=== PATIENT | male | born 1955 | race Caucasian/White ===

== ENCOUNTER 2017-06-10 15:14 | Emergency (ER) | payer OTHER ==
[2017-06-10 15:27] VITALS: BP 140/75
--- NOTE | 2017-06-10 16:31 | EDM.PDOC ---
ED HPI GENERAL MEDICAL PROBLEM - General Chief Complaint: Lower Extremity Injury/Pain Stated Complaint: right ankle injury Time Seen by Provider: 06/10/17 15:50 Source of Information: Reports: Patient History Limitations: Reports: No Limitations - History of Present Illness INITIAL COMMENTS - FREE TEXT/NARRATIVE: Elliot is a 61 yo male who presents to the ER with complaints of right ankle pain. States he was putting in a suspended ceiling this afternoon and went to step off the scaffolding. States he missed his step and fell directly onto his right foot about 5 ft off the ground. Denies any discomfort while sitting but if he tries to bear weight the pain will intensify to about a 10 out of 10. Has previous resection of his right big toe secondary to complications from past infections with history of diabetic neuropathy. Onset: Today Location: Reports: Lower Extremity, Right Severity: Moderate Improves with: Reports: Rest, Other (non weightbearing) Worsens with: Reports: Other (weight bearing), Movement Associated Symptoms: Reports: No Other Symptoms Right Ankle Pain Score (Numeric/FACES): 10 - Related Data Allergies Allergy/AdvReac Type Severity Reaction Status Date / Time cephalexin [Cephalexin] Allergy Mild Hives Verified 06/10/17 15:17 Home Meds: Home Meds Aspirin [Halfprin] 81 mg PO BEDTIME 04/09/15 [History] Cholecalciferol (Vitamin D3) [Vitamin D3] 5,000 unit PO BEDTIME 04/09/15 [ History] Gabapentin 600 mg PO BID 04/09/15 [History] Insulin Lispro [HumaLOG] 5 units SUBCUT 0800,1200,2000 04/09/15 [History] Levothyroxine Sodium 150 mcg PO DAILY 04/09/15 [History] Lisinopril 20 mg PO DAILY 04/09/15 [History] Sertraline HCl 100 mg PO DAILY 04/09/15 [History] Simvastatin [Zocor] 20 mg PO DAILY 04/09/15 [History] Insulin Glarg,Human.Rec.Analog [LantUS Solostar] 20 units SUBCUT DAILY 07/20/16 [History] Aspirin [Halfprin] 1 tab PO DAILY 06/10/17 [History] Dicyclomine [Bentyl] 20 mg PO BID 06/10/17 [History] cloNIDine HCl [Catapres] 0.1 mg PO BID 06/10/17 [History] Past Medical History HEENT History: Reports: Impaired Vision Cardiovascular History: Reports: High Cholesterol, Hypertension Gastrointestinal History: Reports: Irritable Bowel Syndrome Genitourinary History: Reports: Prostate Disorder Other Genitourinary History: 2006 prostate removed , dx of CA. Other Musculoskeletal History: SPINAL STENOSIS, BONE SPURS ON SPINAL COLUMN Neurological History: Reports: CVA Other Neuro History: CVA 2005 Psychiatric History: Reports: Depression Endocrine/Metabolic History: Reports: Diabetes, Type I, Hypothyroidism Oncologic (Cancer) History: Reports: Prostate Other Oncologic History: melanoma right great toe Other Dermatologic History: hx of yeast infections, takes lamicil. - Past Surgical History Other Musculoskeletal Surgeries/Procedures:: Laminectomy on 04/03/2015 Oncologic Surgical History: Reports: None Other Oncologic Surgeries/Procedures: Prostatectomy in 2006 Social & Family History - Tobacco Use Smoking Status *Q: Current Every Day Smoker Years of Tobacco use: 40 Packs/Tins Daily: 1 - Caffeine Use Caffeine Use: Reports: Coffee - Recreational Drug Use Recreational Drug Use: No Review of Systems - Review of Systems Review Of Systems: ROS reveals no pertinent complaints other than HPI. Musculoskeletal: Reports: Joint Pain (right ankle), Joint Swelling. Denies: Foot Pain Skin: Reports: No Symptoms Neurological: Reports: No Symptoms, Other ED EXAM, GENERAL - Physical Exam Exam: See Below General Appearance: Alert, No Apparent Distress, Other (sitting comfortably in wheelchair) Extremities: Normal Capillary Refill, Joint Swelling, Limited Range of Motion ( right ankle), Other (deformity noted to medial malleolus) Neurological: Normal Cognition, No Motor/Sensory Deficits, Other (chronic diminished sensation to distal toes) Psychiatric: Normal Affect, Normal Mood Skin Exam: Warm, Dry, Intact ED TRAUMA EXTREMITY PROCEDURES - Splinting Right Lower Extremity Splint Site: right lower extremity Pre-Procedure NV Status: Normal Post-Procedure NV Status: Normal Splint Material: Fiberglass Splint Design: Posterior Applied & Form Fitted By: Provider Provider Post-Splint Application NV Check: NV Status Normal Complications: No Course - Vital Signs Last Recorded V/S: Last Vital Signs Temp 97.5 F 06/10/17 15:24 Pulse 69 06/10/17 15:24 Resp 16 06/10/17 15:24 BP 140/75 06/10/17 15:24 Pulse Ox 92 L 06/10/17 15:24 - Orders/Labs/Meds Orders: Active Orders 24 hr Category Date Time Status Ankle Min 3V Rt [CR] Stat Exams 06/10/17 15:38 Taken Departure - Departure Time of Disposition: 16:32 Disposition: Home, Self-Care 01 Clinical Impression: Fracture of tibia - Discharge Information Instructions: Tibial Fracture, Adult, [id number] Forms: ED Department Discharge Additional Instructions: 1) Remain non-weightbearing, use crutches 2) Do not remove posterior splint 3) May ice thru the elvira wrap - 20 minutes at a time 4) Keep foot elevated tonight 5) May take 500mg of Tylenol with 400mg of ibuprofen every 6 hours as needed for pain. 6) Appoint[place] tomorrow at 10:00am [place] [facility] [place] List & Annotations (1) Fracture of tibia SNOMED Code(s): 77824554 Code(s): S82.209A - UNSP FRACTURE OF SHAFT OF UNSP TIBIA, INIT FOR CLOS FX Status: Acute Current Visit: Yes - Problem List Review Problem List Initiated/Reviewed/Updated: Yes - My Orders Last 24 Hours: My Active Orders 06/10/17 15:38 Ankle Min 3V Rt [CR] Stat - Assessment/Plan Last 24 Hours: My Active Orders 06/10/17 15:38 Ankle Min 3V Rt [CR] Stat Plan: See additional instructions.
== END 2017-06-10 16:55 | disposition home or self-care (01) ==
LOC: CC.ED 15:14
DX: S82.209A Unspecified fracture of shaft of unspecified tibia, initial encounter for closed fracture (principal); I10 Essential (primary) hypertension; E78.00 Pure hypercholesterolemia, unspecified; F17.210 Nicotine dependence, cigarettes, uncomplicated; Z88.1 Allergy status to other antibiotic agents; Z79.82 Long term (current) use of aspirin; E10.9 Type 1 diabetes mellitus without complications; Z79.899 Other long term (current) drug therapy; X58.XXXA Exposure to other specified factors, initial encounter
CPT/HCPCS: 29515; 73610-RT; 99283

== ENCOUNTER 2019-02-09 03:59 | Emergency (ER) | payer OTHER ==
[2019-02-09 04:24] VITALS: BP 170/73
--- NOTE | 2019-02-09 04:49 | EDM.PDOC ---
ED HPI GENERAL MEDICAL PROBLEM - General Chief Complaint: General Stated Complaint: "Having left leg pain, vomitting, and my blood sug Time Seen by Provider: 02/09/19 04:31 Source of Information: Reports: Patient, Family () History Limitations: Reports: No Limitations - History of Present Illness INITIAL COMMENTS - FREE TEXT/NARRATIVE: Elliot is a 63 yo male who presents to the ED via private vehicle, accompanied by his , with complaints of nausea and vomiting. He states it started yesterday morning and hasn't been able to keep anything down. Is a known Type 1 diabetic but states he hasn't checked his blood sugar since Thursday. Admits since he hasn't been able to eat anything, he hasn't checked his blood sugars since Thursday. He also states he has been having severe left lower extremity pain, starting from his hip and going down to his toes. States the pain started yesterday and is progressively getting worse. Denies any injury or trauma that could have caused the pain. States he has fallen a couple times last night because the pain is severe and worsens with ambulation. Onset Date: 02/08/19 Onset Time: 08:00 Duration: Getting Worse Location: Reports: Abdomen, Lower Extremity, Left - Related Data Allergies Allergy/AdvReac Type Severity Reaction Status Date / Time cephalexin [Cephalexin] Allergy Mild Hives Verified 08/18/18 08:00 Home Meds: Home Meds Cholecalciferol (Vitamin D3) [Vitamin D3] 5,000 unit PO BEDTIME 04/09/15 [ History] Gabapentin 600 mg PO BID 04/09/15 [History] Insulin Lispro [HumaLOG] 3 - 5 units SUBCUT 0800,1200,2000 04/09/15 [History] Levothyroxine Sodium 150 mcg PO DAILY 04/09/15 [History] Lisinopril 20 mg PO BID 04/09/15 [History] Sertraline HCl 100 mg PO DAILY 04/09/15 [History] Simvastatin [Zocor] 20 mg PO DAILY 04/09/15 [History] Insulin Glarg,Human.Rec.Analog [LantUS Solostar] 25 units SUBCUT QAM 07/20/16 [ History] Aspirin [Halfprin] 81 mg PO DAILY 06/10/17 [History] Dicyclomine [Bentyl] 20 mg PO BID 06/10/17 [History] cloNIDine HCl [Catapres] 0.1 mg PO BID 06/10/17 [History] Levothyroxine 175 mcg PO ACBRK 08/16/18 [History] Past Medical History HEENT History: Reports: Cataract, Impaired Vision, Sinusitis Cardiovascular History: Reports: High Cholesterol, Hypertension Respiratory History: Reports: None Gastrointestinal History: Reports: Irritable Bowel Syndrome Genitourinary History: Reports: Prostate Disorder, Other (See Below) Other Genitourinary History: 2006 prostate removed , dx of CA. ELEVATED PSA Musculoskeletal History: Reports: Arthritis Other Musculoskeletal History: SPINAL STENOSIS, BONE SPURS ON SPINAL COLUMN Neurological History: Reports: Concussion, CVA, Neuropathy, Diabetic, Other ( See Below) Other Neuro History: CVA 2005. SPINAL STENOSIS, LUMBAR Psychiatric History: Reports: Depression Endocrine/Metabolic History: Reports: Diabetes, Type I, Hypothyroidism, Vitamin D Deficiency Hematologic History: Reports: None Immunologic History: Reports: None Oncologic (Cancer) History: Reports: Prostate Other Oncologic History: melanoma right great toe Other Dermatologic History: hx of yeast infections, takes lamicil. - Infectious Disease History Infectious Disease History: Reports: Chicken Pox, Measles - Past Surgical History HEENT Surgical History: Reports: None Cardiovascular Surgical History: Reports: None Respiratory Surgical History: Reports: None GI Surgical History: Reports: Colonoscopy Male Surgical History: Reports: Prostatectomy Other Musculoskeletal Surgeries/Procedures:: Laminectomy on 04/03/2015 Oncologic Surgical History: Reports: None Other Oncologic Surgeries/Procedures: Prostatectomy in 2006 Social & Family History - Tobacco Use Smoking Status *Q: Current Every Day Smoker Years of Tobacco use: 40 Packs/Tins Daily: 1 Second Hand Smoke Exposure: No - Caffeine Use Caffeine Use: Reports: Coffee Caffeine Use Comment: 8 OZ - Living Situation & Occupation Living situation: Reports: , with Spouse Occupation: Retired ED ROS GENERAL - Review of Systems Review Of Systems: See Below Constitutional: Reports: Weakness, Fatigue, Decreased Appetite. Denies: Fever, Chills HEENT: Reports: No Symptoms Respiratory: Reports: No Symptoms Cardiovascular: Denies: Chest Pain, Palpitations Endocrine: Reports: Fatigue, High Glucose GI/Abdominal: Reports: Nausea, Vomiting. Denies: Abdominal Pain, Constipation, Diarrhea, Hematemesis : Reports: No Symptoms Musculoskeletal: Reports: Leg Pain (left), Foot Pain Skin: Reports: No Symptoms Neurological: Reports: No Symptoms Psychiatric: Reports: No Symptoms ED EXAM, GENERAL - Physical Exam Exam: See Below Exam Limited By: No Limitations General Appearance: Alert, Mild Distress Eye Exam: Bilateral Eye: Normal Inspection, PERRL Ears: Normal External Exam, Normal Canal, Hearing Grossly Normal, Normal TMs Nose: Normal Inspection, Normal Mucosa, No Blood Throat/Mouth: Normal Inspection, Normal Lips, Normal Teeth, Normal Gums, Normal Oropharynx, Normal Voice, No Airway Compromise Head: Atraumatic, Normocephalic Neck: Normal Inspection, Supple, Non-Tender Respiratory/Chest: No Respiratory Distress, Lungs Clear, Normal Breath Sounds Cardiovascular: No Edema, No Murmur, Irregularly Irregular. No: Normal Peripheral Pulses Peripheral Pulses: 0: Femoral (L), Posterior Tibial (L), Dorsalis Pedis (L), 2+ : Femoral (R), Posterior Tibial (R), Dorsalis Pedis (R) GI/Abdominal: Normal Bowel Sounds, Soft, Non-Tender, No Organomegaly, No Distention, No Mass Extremities: Leg Pain, Pallor. No: Pedal Edema, Limited Range of Motion Neurological: Alert, Oriented, Sensory/Motor Deficit (decreased sensation to left lower extremity) Psychiatric: Normal Affect, Normal Mood Skin Exam: Cool (left lower extremity, roughly midcalf extending to distal digits), Pallor EKG INTERPRETATION EKG Date: 02/09/19 Time: 05:45 Rhythm: A-Fib Rate (Beats/Min): 113 Comparison: NA - No Prior EKG Course - Vital Signs Last Recorded V/S: Last Vital Signs Temp 97.6 F 02/09/19 04:21 Pulse 100 02/09/19 04:21 Resp 20 02/09/19 04:21 BP 170/73 H 02/09/19 04:21 Pulse Ox - Orders/Labs/Meds Orders: Active Orders 24 hr Category Date Time Status C-REACTIVE PROTEIN [CHEM] Stat Lab 02/09/19 04:32 Received CBC WITH AUTO DIFF [HEME] Stat Lab 02/09/19 04:32 Received COMPREHENSIVE METABOLIC PN,CMP [CHEM] Stat Lab 02/09/19 04:32 Received LIPASE [CHEM] Stat Lab 02/09/19 04:32 Received MAGNESIUM [CHEM] Stat Lab 02/09/19 04:32 Received Departure - Departure Time of Disposition: 06:45 Disposition: DC/Tfer to [facility] 02 Clinical Impression: Nonpalpable left femoral pulse, Peripheral artery occlusion Diabetic ketoacidosis associated with type 1 diabetes mellitus Qualifiers: Diabetes mellitus complication detail: without coma Qualified Code(s): E10.10 - Type 1 diabetes mellitus with ketoacidosis without coma Atrial fibrillation Qualifiers: Atrial fibrillation type: unspecified Qualified Code(s): I48.91 - Unspecified atrial fibrillation - Discharge Information - Problem List & Annotations (1) Atrial fibrillation SNOMED Code(s): 52592088 Code(s): I48.91 - UNSPECIFIED ATRIAL FIBRILLATION Status: Acute Qualifiers: Atrial fibrillation type: unspecified Qualified Code(s): I48.91 - Unspecified atrial fibrillation (2) Diabetic ketoacidosis associated with type 1 diabetes mellitus SNOMED Code(s): 954667723, 449521189 Code(s): E10.10 - TYPE 1 DIABETES MELLITUS WITH KETOACIDOSIS WITHOUT COMA Status: Acute Qualifiers: Diabetes mellitus complication detail: without coma Qualified Code(s): E10.10 - Type 1 diabetes mellitus with ketoacidosis without coma (3) Nonpalpable left femoral pulse SNOMED Code(s): 491056195 Code(s): R09.89 - OTH SYMPTOMS AND SIGNS INVOLVING THE CIRC AND RESP SYSTEMS Status: Acute Priority: High (4) Peripheral artery occlusion SNOMED Code(s): 673529395 Code(s): I77.9 - DISORDER OF ARTERIES AND ARTERIOLES, UNSPECIFIED Status: Acute - My Orders Last 24 Hours: My Active Orders 02/09/19 04:32 C-REACTIVE PROTEIN [CHEM] Stat CBC WITH AUTO DIFF [HEME] Stat COMPREHENSIVE METABOLIC PN,CMP [CHEM] Stat LIPASE [CHEM] Stat MAGNESIUM [CHEM] Stat - Assessment/Plan Last 24 Hours: My Active Orders 02/09/19 04:32 C-REACTIVE PROTEIN [CHEM] Stat CBC WITH AUTO DIFF [HEME] Stat COMPREHENSIVE METABOLIC PN,CMP [CHEM] Stat LIPASE [CHEM] Stat MAGNESIUM [CHEM] Stat Plan: Initially, Clarence had a blood glucose of 955mg/dL and was given a bolus of Normal Saline with IV drip of regular insulin at 10 units per hour. He was also given 1 ampule of sodium bicarbonate intravenously secondary to hyperkalemia. 4 mg of Morphine Sulfate was given via IV secondary to moderate pain in left lower extremity. 4mg of Zofran was given IV as well. No emesis during time in ED. With pulseless cold left lower extremity, 5000 units of heparin was given. It appears Clarence has new onset of atrial fibrillation as well, which I feel may be secondary to diabetic ketoacidosis. Consultation with Dr. Rosas, ER physician, at [facility] in [place] in regards to Clarence's condition. Dr. Rosas accepted transfer. Attempt for ALS crew was not immediately available and elected to proceed with flight d/t concerns of delayed care. [facility] accepted transfer via fixed wing with an [place] of 6:[place]. I discussed the risk and benefits of transfer with Clarence and his . Risks of transfer included; worsening of condition/pain, aircraft crash, , loss of limb. Benefits of transfer included; appropriate surgical intervention, hospitalist, diagnostics, certified nursing assistant instructor and improvement of conditions. Risks of non-transfer included; worsening of conditions, loss of limb secondary to vascular compromise, no appropriate surgical or hospital intervention. Benefits of non-transfer included; staying in familiar environment and close to home. Clarence and his verbalized understanding and were in agreement with transfer. I discussed with Clarence and his , initially looked at ALS ground transfer; however secondary to no available semi truck driver's immediately I did not feel comfortable delaying definitive care. Both again verbalized understanding and were in agreement.
[2019-02-09 04:50] LABS: CHLORIDE,CL 90 mEq/L (98-106); SODIUM,NA 129 mEq/L (136-145)
[2019-02-09] MEDS: Sodium Chloride 0.9% 1,000 ML ONE (05:00)
[2019-02-09] MEDS: Sodium Chloride 0.9% 1,000 ML IV ONE (05:00)
[2019-02-09] MEDS: Sodium Chloride 0.9% 100 ML ONE (05:00)
[2019-02-09 05:10] LABS: O2 DELIVERY DEVICE ROOM AIR
[2019-02-09 05:15] LABS: BICARBONATE,ARTERIAL 12.2 mm/L (22.0-26.0); O2 SATURATION ARTERIAL 94 % (95-98); PCO2 ARTERIAL 29 mm/Hg0 (35-45); PO2 ARTERIAL 81 mm/Hg (80-100)
[2019-02-09] MEDS: Ondansetron 4 MG/2 ML SDV IVPUSH STA (05:25)
[2019-02-09] MEDS: Sodium Chloride 0.9% 250 ML ONE (06:14)
[2019-02-09] MEDS: Sodium Bicarbonate 8.4% 50 MEQ/50 ML Syringe IV ONE (06:15)
[2019-02-09] MEDS: Morphine 4 MG/ML Syringe IVPUSH ONE (06:26)
[2019-02-09] MEDS: Insulin Regular, Human 100 Units/ML 10 ML Vial IV STA (06:33)
[2019-02-09] MEDS: Heparin Sodium 10,000 Units/1 ML MDV IVPUSH ONE (06:46)
== END 2019-02-09 07:18 ==
LOC: CC.ED 03:59
DX: E10.10 Type 1 diabetes mellitus with ketoacidosis without coma (principal); I77.9 Disorder of arteries and arterioles, unspecified; I48.91 Unspecified atrial fibrillation; I10 Essential (primary) hypertension; F17.210 Nicotine dependence, cigarettes, uncomplicated; Z79.899 Other long term (current) drug therapy; Z79.82 Long term (current) use of aspirin; Z88.1 Allergy status to other antibiotic agents
CPT/HCPCS: 36415; 36600; 80053; 82803; 82947; 82962; 83605; 83690; 83735; 85025; 86140; 93005; 96361; 96365; 96375; 99285; J1644; J1815; J2270; J2405; J7030; J7050

== ENCOUNTER 2019-05-21 19:10 | Observation (INO) | payer OTHER, MEDICARE ==
--- NOTE | 2019-05-21 19:30 | EDM.PDOC ---
ED HPI GENERAL MEDICAL PROBLEM - General Chief Complaint: General Stated Complaint: syncope Time Seen by Provider: 05/21/19 19:10 Source of Information: Reports: Patient, EMS History Limitations: Reports: No Limitations - History of Present Illness INITIAL COMMENTS - FREE TEXT/NARRATIVE: This patient is a 63 year old male that presents to the ER. Patient is brought via EMS [place]. Patient reports that he was feeling fine today without issues. He reports then about 1830 he standing at someone else car at the road leaning over at the window talking. He reports that he got hot, felt lightheaded , diaphoretic, and passed out. EMS reports the witness at scene said he was passed out for 2 minutes. The patient reports that when he woke up, he now feels nauseated. Patient arrival to the ER is alert and oriented x4. Patient denies chest pain, shortness of breath, headache, lightheadedness. Patient reports nausea. 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 Onset: Today Onset Date: 05/21/19 Onset Time: 18:30 Severity: Moderate Improves with: Reports: None Worsens with: Reports: None Associated Symptoms: Reports: Nausea/Vomiting, Syncope. Denies: Confusion, Chest Pain, Cough, cough w sputum, Diaphoresis, Fever/Chills, Headaches, Loss of Appetite, Malaise, Rash, Seizure, Shortness of Breath, Weakness - Related Data Allergies Allergy/AdvReac Type Severity Reaction Status Date / Time cephalexin [Cephalexin] Allergy Mild Hives Verified 05/21/19 20:06 Penicillins Allergy Rash Verified 05/21/19 20:06 Home Meds: Home Meds Cholecalciferol (Vitamin D3) [Vitamin D3] 5,000 unit PO BEDTIME 04/09/15 [ History] Insulin Lispro [HumaLOG] 3 - 5 units SUBCUT 0800,1200,1730 04/09/15 [History] Lisinopril 20 mg PO DAILY 04/09/15 [History] Sertraline HCl 100 mg PO DAILY 04/09/15 [History] Simvastatin [Zocor] 20 mg PO BEDTIME 04/09/15 [History] Insulin Glarg,Human.Rec.Analog [LantUS Solostar] 25 units SUBCUT QAM 07/20/16 [ History] Aspirin [Halfprin] 81 mg PO DAILY 06/10/17 [History] Dicyclomine [Bentyl] 20 mg PO BID 06/10/17 [History] Furosemide [Lasix] 20 mg PO DAILY 05/21/19 [History] Levothyroxine Sodium [Synthroid] 175 mcg PO DAILY 05/21/19 [History] Metoprolol Tartrate [Lopressor] 25 mg PO Q12HR 05/21/19 [History] Omeprazole 20 mg PO ACBREAKFAST 05/21/19 [History] Warfarin [Coumadin] 10 mg PO DAILY 05/21/19 [History] Gabapentin [Neurontin] 200 mg PO TID 05/22/19 [History] amLODIPine [Norvasc] 10 mg PO DAILY 05/22/19 [History] Past Medical History HEENT History: Reports: Cataract, Impaired Vision, Sinusitis Cardiovascular History: Reports: High Cholesterol, Hypertension Respiratory History: Reports: None Gastrointestinal History: Reports: Irritable Bowel Syndrome Genitourinary History: Reports: Prostate Disorder, Other (See Below) Other Genitourinary History: 2006 prostate removed , dx of CA. ELEVATED PSA Musculoskeletal History: Reports: Arthritis Other Musculoskeletal History: SPINAL STENOSIS, BONE SPURS ON SPINAL COLUMN Neurological History: Reports: Concussion, CVA, Neuropathy, Diabetic, Other ( See Below) Other Neuro History: CVA 2005. SPINAL STENOSIS, LUMBAR Psychiatric History: Reports: Depression Endocrine/Metabolic History: Reports: Diabetes, Type I, Hypothyroidism, Vitamin D Deficiency Hematologic History: Reports: None Immunologic History: Reports: None Oncologic (Cancer) History: Reports: Prostate Other Oncologic History: melanoma right great toe Other Dermatologic History: hx of yeast infections, takes lamicil. - Infectious Disease History Infectious Disease History: Reports: Chicken Pox, Measles - Past Surgical History HEENT Surgical History: Reports: None Cardiovascular Surgical History: Reports: None Respiratory Surgical History: Reports: None GI Surgical History: Reports: Colonoscopy Male Surgical History: Reports: Prostatectomy Other Musculoskeletal Surgeries/Procedures:: Laminectomy on 04/03/2015 Oncologic Surgical History: Reports: None Other Oncologic Surgeries/Procedures: Prostatectomy in 2006 Social & Family History - Caffeine Use Caffeine Use: Reports: Coffee Caffeine Use Comment: 8 OZ - Living Situation & Occupation Living situation: Reports: , with Spouse Occupation: Retired ED ROS GENERAL - Review of Systems Review Of Systems: See Below Constitutional: Reports: Weakness (generalized), Diaphoresis HEENT: Reports: No Symptoms Respiratory: Reports: No Symptoms. Denies: Shortness of Breath Cardiovascular: Reports: Lightheadedness, Syncope. Denies: Chest Pain Endocrine: Reports: No Symptoms GI/Abdominal: Reports: Nausea. Denies: Abdominal Pain, Diarrhea, Vomiting : Reports: No Symptoms Musculoskeletal: Reports: No Symptoms Skin: Reports: Wound (right knee abrasion) Neurological: Reports: Dizziness, Syncope Psychiatric: Reports: No Symptoms Hematologic/Lymphatic: Reports: No Symptoms Immunologic: Reports: No Symptoms ED EXAM, GENERAL - Physical Exam Exam: See Below Exam Limited By: No Limitations General Appearance: Alert, WD/WN, No Apparent Distress Eye Exam: Bilateral Eye: EOMI, PERRL Ears: Normal External Exam, Normal Canal, Hearing Grossly Normal, Normal TMs Ear Exam: Bilateral Ear: Auricle Normal, Canal Normal, TM normal Nose: Normal Inspection, Normal Mucosa, No Blood Throat/Mouth: Normal Inspection, Normal Lips, Normal Teeth, Normal Gums, Normal Oropharynx, Normal Voice, No Airway Compromise Head: Atraumatic, Normocephalic Neck: Normal Inspection, Supple, Non-Tender, Full Range of Motion Respiratory/Chest: No Respiratory Distress, Lungs Clear, Normal Breath Sounds, No Accessory Muscle Use, Chest Non-Tender Cardiovascular: Normal Peripheral Pulses, No Edema, No Gallop, No JVD, No Murmur , No Rub, Bradycardia (54 on exam) Peripheral Pulses: 2+: Radial (L), Radial (R), Posterior Tibial (L), Posterior Tibial (R), Dorsalis Pedis (L), Dorsalis Pedis (R) GI/Abdominal: Normal Bowel Sounds, Soft, Non-Tender, No Organomegaly, No Distention, No Abnormal Bruit, No Mass, Pelvis Stable Back Exam: Normal Inspection, Full Range of Motion. No: CVA Tenderness (L), CVA Tenderness (R), Decreased Range of Motion, Muscle Spasm, Paraspinal Tenderness, Vertebral Tenderness Extremities: Normal Inspection, Normal Range of Motion, Non-Tender, No Pedal Edema, Normal Capillary Refill, Other (LLE wound with dressing in place, not new from today. ) Neurological: Alert, Oriented, CN II-XII Intact, Normal Cognition, No Motor/ Sensory Deficits Psychiatric: Normal Affect, Normal Mood Skin Exam: Warm, Dry, Normal Color, No Rash, Wound/Incision (small superficial abrasion right knee) Lymphatic: No Adenopathy EKG INTERPRETATION EKG Date: 05/21/19 Time: 19:22 Rate (Beats/Min): 50 ST-T: Normal Course - Vital Signs Last Recorded V/S: Last Vital Signs Temp 97.2 F 05/22/19 08:00 Pulse 64 05/22/19 08:00 Resp 16 05/22/19 08:00 BP 144/61 H 05/22/19 11:26 Pulse Ox 93 L 05/22/19 08:00 - Orders/Labs/Meds Orders: Active Orders 24 hr Category Date Time Status Chest 2V [CR] Stat Exams 05/21/19 19:12 Taken Head wo Cont [CT] Stat Exams 05/21/19 19:28 Taken Medication Orders Acetaminophen (Tylenol) 650 mg PO Q4H PRN PRN Reason: Pain (Mild 1-3)/fever Hydrocodone Bitart/Acetaminophen ([place] 325-5 Mg) 1 tab PO Q4H PRN PRN Reason: Pain (moderate 4-6) Amlodipine Besylate (Norvasc) 10 mg PO DAILY [facility] Last Admin: 05/22/19 11:26 Dose: 10 mg Aspirin (Halfprin) 81 mg PO DAILY [facility] Furosemide (Lasix) 20 mg PO DAILY [facility] Last Admin: 05/22/19 11:24 Dose: 20 mg Gabapentin (Neurontin) 200 mg PO TID [facility] Sodium Chloride (Normal Saline) 500 mls @ 500 mls/hr IV .BOLUS [facility] Last Admin: 05/21/19 22:15 Dose: 500 mls/hr Insulin Glargine (Lantus Solostar) 0 units SUBCUT QAM [facility] Last Admin: 05/22/19 07:58 Dose: 25 units Insulin Human Lispro (Humalog) 0 unit SUBCUT 0800,1200,1730 [facility] Last Admin: 05/22/19 12:05 Dose: 3 units Admin: 05/22/19 07:56 Dose: 3 units Lisinopril (Prinivil) 20 mg PO DAILY [facility] Last Admin: 05/22/19 11:25 Dose: 20 mg Vitamin D3 *Pt Own (Med*) 5,000 unit PO BEDTIME [facility] Ondansetron HCl (Zofran) 4 mg IV Q6H PRN PRN Reason: Nausea/Vomiting Pantoprazole Sodium (Protonix) 40 mg PO ACBREAKFAST [facility] Last Admin: 05/22/19 07:52 Dose: 40 mg Dicyclomine 20 Mg (Cap*Pt Own Med*) 20 each PO BID [facility] Last Admin: 05/22/19 11:26 Dose: 20 each Levothyroxine 175 (Mcg Tab *Pt Own Med*) 1 each PO DAILY [facility] Last Admin: 05/22/19 11:26 Dose: 1 each Sertraline HCl (Zoloft) 100 mg PO DAILY [facility] Last Admin: 05/22/19 11:25 Dose: 100 mg Simvastatin (Zocor) 20 mg PO BEDTIME [facility] Warfarin Sodium (Coumadin) 10 mg PO DAILY@1200 [facility] Last Admin: 05/22/19 12:06 Dose: 10 mg Labs: Laboratory Tests 05/21/19 05/21/19 05/21/19 Range/Units 19:35 19:35 19:35 WBC 4.5 L (5.0-10.0) 10^3/uL RBC 4.79 (4.50-6.00) 10^6/uL Hgb 14.2 (14.0-18.0) g/dL Hct 41.8 (40.0-54.0) % MCV 87.3 (82.0-94.0) fL MCH 29.6 (27.0-32.0) pg MCHC 34.0 (33.0-38.0) g/dL RDW Coeff of Melvin 13.6 (11.0-15.0) % Plt Count 151 (150-400) 10^3/uL Add Manual Diff Yes Neutrophils % (Manual) 35 (35-85) % Band Neutrophils % 2 (0-5) % Lymphocytes % (Manual) 52 (21-55) % Monocytes % (Manual) 5 (2-12) % Eosinophils % (Manual) 2 (0-5) % Basophils % (Manual) 4 H (0-3) % PT 18.7 H (9.7-12.3) SEC INR 1.88 H (0.92-1.18) APTT 30.0 (23.2-32.3) SEC Sodium 139 (136-145) mEq/L Potassium 4.1 (3.5-5.0) mEq/L Chloride 104 (98-106) mEq/L Carbon Dioxide 27 (21-32) mmol/L BUN 34 H (7-18) mg/dL Creatinine 1.8 H (0.7-1.3) mg/dL Est Cr Clr Drug Dosing 39.58 mL/min Estimated GFR (MDRD) 38 L (>=60) mL/min Glucose 125 H (75-99) mg/dL Calcium 8.6 (8.4-10.1) mg/dL Total Bilirubin 0.2 (0.0-1.0) mg/dL AST 27 (15-37) U/L ALT 32 (12-78) U/L Alkaline Phosphatase 88 (46-116) U/L Lactate Dehydrogenase 229 H (100-190) U/L Creatine Kinase 279 H (35-232) U/L Troponin I < 0.017 (0.00-0.06) ng/mL Total Protein 7.5 (6.4-8.2) g/dL Albumin 3.3 L (3.4-5.0) g/dL Meds: Medications Generic Name Dose Route Start Last Admin Trade Name Freq PRN Reason Stop Dose Admin Acetaminophen 650 mg 05/21/19 21:12 Tylenol PO Q4H PRN Pain (Mild 1-3)/fever Hydrocodone Bitart/Acetaminophen 1 tab 05/21/19 21:12 [place] 325-5 Mg PO Q4H PRN Pain (moderate 4-6) Amlodipine Besylate 10 mg 05/22/19 10:30 05/22/19 11:26 Norvasc PO 10 mg DAILY MATT Administration Aspirin 81 mg 05/22/19 10:00 Halfprin PO DAILY MATT Furosemide 20 mg 05/22/19 08:00 05/22/19 11:24 Lasix PO 20 mg DAILY MATT Administration Gabapentin 200 mg 05/22/19 14:00 Neurontin PO TID MATT Sodium Chloride 500 mls @ 500 mls/hr 05/21/19 22:00 05/21/19 22:15 Normal Saline IV 500 mls/hr .BOLUS MATT Administration Insulin Glargine 0 units 05/22/19 08:00 05/22/19 07:58 Lantus Solostar SUBCUT 25 units QAM MATT Administration Insulin Human Lispro 0 unit 05/22/19 08:00 05/22/19 12:05 Humalog SUBCUT 3 units 0800,1200,1730 MATT Administration Lisinopril 20 mg 05/22/19 08:00 05/22/19 11:25 Prinivil PO 20 mg DAILY MATT Administration Vitamin D3 *Pt Own 5,000 unit 05/22/19 20:00 Med* PO BEDTIME MATT Ondansetron HCl 4 mg 05/21/19 21:12 Zofran IV Q6H PRN Nausea/Vomiting Pantoprazole Sodium 40 mg 05/22/19 07:00 05/22/19 07:52 Protonix PO 40 mg ACBREAKFAST MATT Administration Dicyclomine 20 Mg 20 each 05/22/19 10:00 05/22/19 11:26 Cap*Pt Own Med* PO 20 each BID MATT Administration Levothyroxine 175 1 each 05/22/19 11:00 05/22/19 11:26 Mcg Tab *Pt Own Med* PO 1 each DAILY MATT Administration Sertraline HCl 100 mg 05/22/19 08:00 05/22/19 11:25 Zoloft PO 100 mg DAILY MATT Administration Simvastatin 20 mg 05/22/19 20:00 Zocor PO BEDTIME MATT Warfarin Sodium 10 mg 05/22/19 12:00 05/22/19 12:06 Coumadin PO 10 mg DAILY@1200 MATT Administration Discontinued Medications Generic Name Dose Route Start Last Admin Trade Name Freq PRN Reason Stop Dose Admin Aspirin 81 mg 05/22/19 08:00 05/22/19 12:31 Aspirin PO Not Given DAILY [facility] Dicyclomine HCl 20 mg 05/22/19 08:00 05/22/19 12:31 Bentyl PO Not Given BID [facility] Gabapentin 600 mg 05/22/19 08:00 05/22/19 12:32 Neurontin PO Not Given TID MATT Gabapentin 600 mg 05/22/19 09:48 Neurontin PO TID [facility] Sodium Chloride 250 mls @ 250 mls/hr 05/21/19 20:30 Normal Saline IV .BOLUS [facility] Levothyroxine Sodium 150 mcg 05/22/19 08:00 05/22/19 12:32 Levothyroxine PO Not Given DAILY MATT Simvastatin 20 mg 05/22/19 08:00 05/22/19 12:32 Zocor PO Not Given DAILY MATT - Radiology Interpretation Free Text/Narrative:: Head ct: normal unenhanced ct scan of the brain. no acute infarct, no intracranial hemorrhage. CXR: No acute findings CT Results Date: 05/21/19 CT Results Time: 20:23 - Re-Assessments/Exams Free Text/Narrative Re-Assessment/Exam: 05/21/19 20:27 This patient reports that he feels fine with no complaints. He denies christy, dizziness, n, v, d, f, cp, soa, lightheaded. Patient alert and oriented. The patient is on Metoprolol, he has not taken his nightly dose. Patient is bradycardia at rate 48. Will admit this patient observation, hold his Metoprolol. Will redraw troponin at 11pm and again in am. 05/21/19 21:00 Patient BS elevated due missing last dose of insulin. Departure - Departure Time of Disposition: 20:29 Disposition: Refer to Observation Condition: Fair Clinical Impression: General weakness, Bradycardia Syncope Qualifiers: Syncope type: unspecified Qualified Code(s): R55 - Syncope and collapse - Discharge Information *PRESCRIPTION DRUG MONITORING PROGRAM REVIEWED*: Not Applicable *COPY OF PRESCRIPTION DRUG MONITORING REPORT IN PATIENT LEN: Not Applicable - My Orders Last 24 Hours: My Active Orders 05/21/19 19:12 Chest 2V [CR] Stat 05/21/19 19:28 Head wo Cont [CT] Stat - Assessment/Plan Last 24 Hours: My Active Orders 05/21/19 19:12 Chest 2V [CR] Stat 05/21/19 19:28 Head wo Cont [CT] Stat Plan: PLEASE SEE RN NOTE FOR PFSH PLEASE USE ER H&P ADMIT H&P.
[2019-05-21 19:57] LABS: CHLORIDE,CL 104 mEq/L (98-106); SODIUM,NA 139 mEq/L (136-145)
[2019-05-21] MEDS ORDERED: Sodium Chloride 0.9% 250 ML IV SCH (20:30)
[2019-05-21] MEDS ORDERED: Acetaminophen/HYDROcodone 325-5 MG Tab PO PRN (21:12)
[2019-05-21] MEDS ORDERED: Acetaminophen 325 MG Tab PO PRN (21:12)
[2019-05-21] MEDS ORDERED: Ondansetron 4 MG/2 ML SDV IV PRN (21:12)
[2019-05-21] MEDS ORDERED: Sodium Chloride 0.9% 500 ML IV SCH (22:00)
[2019-05-22 07:30] LABS: CHLORIDE,CL 104 mEq/L (98-106); SODIUM,NA 137 mEq/L (136-145)
[2019-05-22] MEDS: Pantoprazole 40 MG Tab.CR PO SCH (07:52)
[2019-05-22] MEDS: Insulin Lispro 100 Units/ML 3 ML Vial SUBCUT SCH ×3 (07:56→17:27)
[2019-05-22] MEDS: Insulin Glargine,Human Rec. Analog 100 Units/ML 3 ML Pen SUBCUT SCH (07:58)
[2019-05-22] MEDS ORDERED: Gabapentin 300 MG Cap PO SCH (08:00)
[2019-05-22] MEDS ORDERED: Levothyroxine 150 MCG Tab PO SCH (08:00)
[2019-05-22] MEDS ORDERED: Aspirin 81 MG Tab.Chew PO SCH (08:00)
[2019-05-22] MEDS ORDERED: Dicyclomine 10 MG Cap PO SCH (08:00)
[2019-05-22] MEDS ORDERED: Simvastatin 20 MG Tab PO SCH (08:00)
[2019-05-22] MEDS ORDERED: GABAPENTIN 100 MG PO SCH (09:48)
--- NOTE | 2019-05-22 09:55 | PCM.PN ---
- General Info Date of Service: 05/22/19 Functional Status: Reports: Pain Controlled, Tolerating Diet, Ambulating - Review of Systems General: Reports: No Symptoms HEENT: Reports: No Symptoms Pulmonary: Reports: No Symptoms Cardiovascular: Reports: No Symptoms Gastrointestinal: Reports: No Symptoms Genitourinary: Reports: No Symptoms Musculoskeletal: Reports: No Symptoms Skin: Reports: No Symptoms Neurological: Reports: No Symptoms Psychiatric: Reports: No Symptoms - Patient Data Vitals - Most Recent: Last Vital Signs Temp 98.2 F 05/22/19 04:00 Pulse 74 05/22/19 04:00 Resp 18 05/22/19 04:00 BP 141/87 H 05/22/19 04:00 Pulse Ox 97 05/22/19 04:00 Weight - Most Recent: 190 lb Lab Results Last 24 Hours: Laboratory Results - last 24 hr 05/21/19 05/21/19 05/21/19 Range/Units 19:35 19:35 19:35 WBC 4.5 L (5.0-10.0) 10^3/uL RBC 4.79 (4.50-6.00) 10^6/uL Hgb 14.2 (14.0-18.0) g/dL Hct 41.8 (40.0-54.0) % MCV 87.3 (82.0-94.0) fL MCH 29.6 (27.0-32.0) pg MCHC 34.0 (33.0-38.0) g/dL RDW Coeff of Melvin 13.6 (11.0-15.0) % Plt Count 151 (150-400) 10^3/uL Neut % (Auto) (35-85) % Lymph % (Auto) (10-55) % [place] % (Auto) (0-16) % Eos % (Auto) (0-5) % Baso % (Auto) (0-3) % Neut # (Auto) (1.80-7.00) 10^3/uL Lymph # (Auto) (1.00-4.80) 10^3/uL [place] # (Auto) (0.00-0.80) 10^3/uL Eos # (Auto) (0.00-0.45) 10^3/uL Baso # (Auto) 10^3/uL Add Manual Diff Yes Neutrophils % (Manual) 35 (35-85) % Band Neutrophils % 2 (0-5) % Lymphocytes % (Manual) 52 (21-55) % Monocytes % (Manual) 5 (2-12) % Eosinophils % (Manual) 2 (0-5) % Basophils % (Manual) 4 H (0-3) % PT 18.7 H (9.7-12.3) SEC INR 1.88 H (0.92-1.18) APTT 30.0 (23.2-32.3) SEC Sodium 139 (136-145) mEq/L Potassium 4.1 (3.5-5.0) mEq/L Chloride 104 (98-106) mEq/L Carbon Dioxide 27 (21-32) mmol/L BUN 34 H (7-18) mg/dL Creatinine 1.8 H (0.7-1.3) mg/dL Est Cr Clr Drug Dosing 39.58 mL/min Estimated GFR (MDRD) 38 L (>=60) mL/min Glucose 125 H (75-99) mg/dL Calcium 8.6 (8.4-10.1) mg/dL Total Bilirubin 0.2 (0.0-1.0) mg/dL AST 27 (15-37) U/L ALT 32 (12-78) U/L Alkaline Phosphatase 88 (46-116) U/L Lactate Dehydrogenase 229 H (100-190) U/L Creatine Kinase 279 H (35-232) U/L Troponin I < 0.017 (0.00-0.06) ng/mL Total Protein 7.5 (6.4-8.2) g/dL Albumin 3.3 L (3.4-5.0) g/dL Urine Color (YELLOW) Urine Appearance (CLEAR) Urine pH (4.5-8.0) Ur Specific [place] (1.003-1.020) Urine Protein (NEGATIVE) mg/dL Urine Glucose (UA) (NEGATIVE) mg/dL Urine Ketones (NEGATIVE) mg/dL Urine Occult Blood (NEGATIVE) Urine Nitrite (NEGATIVE) Urine Bilirubin (NEGATIVE) Urine Urobilinogen (0.2-1.0) EU/dL Ur Leukocyte Esterase (NEGATIVE) Urine RBC (0-5) /HPF Urine WBC (0-5) /HPF Urine Mucus (NOT SEEN) /HPF 05/21/19 05/22/1919 Range/Units 22:50 05:00 06:50 WBC 4.4 L (5.0-10.0) 10^3/uL RBC 4.53 (4.50-6.00) 10^6/uL Hgb 13.5 L (14.0-18.0) g/dL Hct 39.8 L (40.0-54.0) % MCV 87.9 (82.0-94.0) fL MCH 29.8 (27.0-32.0) pg MCHC 33.9 (33.0-38.0) g/dL RDW Coeff of Melvin 13.5 (11.0-15.0) % Plt Count 132 L (150-400) 10^3/uL Neut % (Auto) 62.3 (35-85) % Lymph % (Auto) 23.1 (10-55) % [place] % (Auto) 10.6 (0-16) % Eos % (Auto) 1.1 (0-5) % Baso % (Auto) 2.9 (0-3) % Neut # (Auto) 2.75 (1.80-7.00) 10^3/uL Lymph # (Auto) 1.02 (1.00-4.80) 10^3/uL [place] # (Auto) 0.47 (0.00-0.80) 10^3/uL Eos # (Auto) 0.05 (0.00-0.45) 10^3/uL Baso # (Auto) 0.13 10^3/uL Add Manual Diff Neutrophils % (Manual) (35-85) % Band Neutrophils % (0-5) % Lymphocytes % (Manual) (21-55) % Monocytes % (Manual) (2-12) % Eosinophils % (Manual) (0-5) % Basophils % (Manual) (0-3) % PT (9.7-12.3) SEC INR (0.92-1.18) APTT (23.2-32.3) SEC Sodium (136-145) mEq/L Potassium (3.5-5.0) mEq/L Chloride (98-106) mEq/L Carbon Dioxide (21-32) mmol/L BUN (7-18) mg/dL Creatinine (0.7-1.3) mg/dL Est Cr Clr Drug Dosing mL/min Estimated GFR (MDRD) (>=60) mL/min Glucose (75-99) mg/dL Calcium (8.4-10.1) mg/dL Total Bilirubin (0.0-1.0) mg/dL AST (15-37) U/L ALT (12-78) U/L Alkaline Phosphatase (46-116) U/L Lactate Dehydrogenase (100-190) U/L Creatine Kinase (35-232) U/L Troponin I < 0.017 (0.00-0.06) ng/mL Total Protein (6.4-8.2) g/dL Albumin (3.4-5.0) g/dL Urine Color Light yellow (YELLOW) Urine Appearance Clear (CLEAR) Urine pH 5.5 (4.5-8.0) Ur Specific [place] 1.015 (1.003-1.020) Urine Protein 100 H (NEGATIVE) mg/dL Urine Glucose (UA) 500 H (NEGATIVE) mg/dL Urine Ketones Negative (NEGATIVE) mg/dL Urine Occult Blood Trace-intact H (NEGATIVE) Urine Nitrite Negative (NEGATIVE) Urine Bilirubin Negative (NEGATIVE) Urine Urobilinogen 0.2 (0.2-1.0) EU/dL Ur Leukocyte Esterase Negative (NEGATIVE) Urine RBC 0-5 (0-5) /HPF Urine WBC 0-5 (0-5) /HPF Urine Mucus Occasional H (NOT SEEN) /HPF 05/22/19 Range/Units 06:50 WBC (5.0-10.0) 10^3/uL RBC (4.50-6.00) 10^6/uL Hgb (14.0-18.0) g/dL Hct (40.0-54.0) % MCV (82.0-94.0) fL MCH (27.0-32.0) pg MCHC (33.0-38.0) g/dL RDW Coeff of Melvin (11.0-15.0) % Plt Count (150-400) 10^3/uL Neut % (Auto) (35-85) % Lymph % (Auto) (10-55) % [place] % (Auto) (0-16) % Eos % (Auto) (0-5) % Baso % (Auto) (0-3) % Neut # (Auto) (1.80-7.00) 10^3/uL Lymph # (Auto) (1.00-4.80) 10^3/uL [place] # (Auto) (0.00-0.80) 10^3/uL Eos # (Auto) (0.00-0.45) 10^3/uL Baso # (Auto) 10^3/uL Add Manual Diff Neutrophils % (Manual) (35-85) % Band Neutrophils % (0-5) % Lymphocytes % (Manual) (21-55) % Monocytes % (Manual) (2-12) % Eosinophils % (Manual) (0-5) % Basophils % (Manual) (0-3) % PT (9.7-12.3) SEC INR (0.92-1.18) APTT (23.2-32.3) SEC Sodium 137 (136-145) mEq/L Potassium 4.8 (3.5-5.0) mEq/L Chloride 104 (98-106) mEq/L Carbon Dioxide 29 (21-32) mmol/L BUN 36 H (7-18) mg/dL Creatinine 1.9 H (0.7-1.3) mg/dL Est Cr Clr Drug Dosing 37.50 mL/min Estimated GFR (MDRD) 36 L (>=60) mL/min Glucose 352 H* D (75-99) mg/dL Calcium 8.3 L (8.4-10.1) mg/dL Total Bilirubin (0.0-1.0) mg/dL AST (15-37) U/L ALT (12-78) U/L Alkaline Phosphatase (46-116) U/L Lactate Dehydrogenase (100-190) U/L Creatine Kinase (35-232) U/L Troponin I < 0.017 (0.00-0.06) ng/mL Total Protein (6.4-8.2) g/dL Albumin (3.4-5.0) g/dL Urine Color (YELLOW) Urine Appearance (CLEAR) Urine pH (4.5-8.0) Ur Specific [place] (1.003-1.020) Urine Protein (NEGATIVE) mg/dL Urine Glucose (UA) (NEGATIVE) mg/dL Urine Ketones (NEGATIVE) mg/dL Urine Occult Blood (NEGATIVE) Urine Nitrite (NEGATIVE) Urine Bilirubin (NEGATIVE) Urine Urobilinogen (0.2-1.0) EU/dL Ur Leukocyte Esterase (NEGATIVE) Urine RBC (0-5) /HPF Urine WBC (0-5) /HPF Urine Mucus (NOT SEEN) /HPF Med Orders - Current: Current Medications Acetaminophen (Tylenol) 650 mg PO Q4H PRN PRN Reason: Pain (Mild 1-3)/fever Hydrocodone Bitart/Acetaminophen ([place] 325-5 Mg) 1 tab PO Q4H PRN PRN Reason: Pain (moderate 4-6) Aspirin (Aspirin) 81 mg PO DAILY [facility] Furosemide (Lasix) 20 mg PO DAILY [facility] Gabapentin (Neurontin) 600 mg PO TID [facility] Sodium Chloride (Normal Saline) 500 mls @ 500 mls/hr IV .BOLUS [facility] Last Admin: 05/21/19 22:15 Dose: 500 mls/hr Insulin Glargine (Lantus Solostar) 0 units SUBCUT QAM [facility] Last Admin: 05/22/19 07:58 Dose: 25 units Insulin Human Lispro (Humalog) 0 unit SUBCUT 0800,1200,1730 [facility] Last Admin: 05/22/19 07:56 Dose: 3 units Levothyroxine Sodium (Levothyroxine) 150 mcg PO DAILY [facility] Lisinopril (Prinivil) 20 mg PO DAILY [facility] Non-Formulary Medication (Cholecalciferol (Vitamin D3) [Vitamin D3]) 5,000 unit PO BEDTIME [facility] Ondansetron HCl (Zofran) 4 mg IV Q6H PRN PRN Reason: Nausea/Vomiting Pantoprazole Sodium (Protonix) 40 mg PO ACBREAKFAST [facility] Last Admin: 05/22/19 07:52 Dose: 40 mg Dicyclomine 20 Mg (Cap*Pt Own Med*) 20 each PO BID [facility] Sertraline HCl (Zoloft) 100 mg PO DAILY [facility] Simvastatin (Zocor) 20 mg PO DAILY [facility] Warfarin Sodium (Coumadin) 10 mg PO DAILY@1200 [facility] Discontinued Medications Dicyclomine HCl (Bentyl) 20 mg PO BID [facility] Sodium Chloride (Normal Saline) 250 mls @ 250 mls/hr IV .BOLUS [facility] - Exam General: Alert, Oriented, Cooperative, No Acute Distress Neck: Supple, Trachea Midline, No JVD, No Thyromegaly Lungs: Clear to Auscultation, Normal Respiratory Effort Cardiovascular: Regular Rhythm, Bradycardia (56 on exam) GI/Abdominal Exam: Normal Bowel Sounds, Soft, Non-Tender, No Organomegaly, No Distention, No Abnormal Bruit, No Mass, Pelvis Stable (Male) Exam: Deferred Back Exam: Normal Inspection, Full Range of Motion Extremities: Normal Inspection, Normal Range of Motion, Non-Tender, No Pedal Edema, Normal Capillary Refill Peripheral Pulses: 2+: Radial (L), Radial (R), Posterior Tibial (L), Posterior Tibial (R), Dorsalis Pedis (L), Dorsalis Pedis (R) Skin: Warm, Dry, Intact Wound/Incisions: Healing Well (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) Neurological: No New Focal Deficit Psy/Mental Status: Alert, Normal Affect, Normal Mood - Problem List Review Problem List Initiated/Reviewed/Updated: Yes - My Orders Last 24 Hours: My Active Orders 05/21/19 19:12 Chest 2V [CR] Stat 05/21/19 19:28 Head wo Cont [CT] Stat 05/21/19 20:57 Resuscitation Status Routine 05/21/19 21:12 Patient Status [ADT] Routine Cardiac Monitoring [RC] 0800,1999 Notify Provider Vital Signs [RC] .PRN Oxygen Therapy [RC] .PRN Up With Assistance [RC] .PRN Vital Signs [RC] 0000,0400,0800,1200,1600,2000 Acetaminophen [Tylenol] 650 mg PO Q4H PRN Acetaminophen/HYDROcodone [[place] 325-5 MG] 1 tab PO Q4H PRN Ondansetron [Zofran] 4 mg IV Q6H PRN Anticoagulation Contraindications VTE [AST] Per Unit Routine Antiembolic Hose [OM.PC] Per Unit Routine 05/21/19 22:00 Sodium Chloride 0.9% [Normal Saline] 500 ml IV .BOLUS 05/22/19 07:00 Pantoprazole [ProTONIX] 40 mg PO ACBREAKFAST 05/22/19 08:00 Aspirin 81 mg PO DAILY Furosemide [Lasix] 20 mg PO DAILY Gabapentin [Neurontin] 600 mg PO TID Insulin Glarg,Human.Rec.Analog [LantUS Solostar] 0 units SUBCUT QAM Insulin Lispro [HumaLOG] 0 unit SUBCUT 0800,1200,1730 Levothyroxine 150 mcg PO DAILY Lisinopril [Prinivil] 20 mg PO DAILY Sertraline [Zoloft] 100 mg PO DAILY Simvastatin [Zocor] 20 mg PO DAILY 05/22/19 10:00 Patient's Own Medication [Ptom] 20 each PO BID 05/22/19 12:00 Warfarin [Coumadin] 10 mg PO DAILY@1200 05/22/19 20:00 Cholecalciferol (Vitamin D3) [Vitamin D3] 5,000 unit PO BEDTIME 05/23/19 05:00 BASIC METABOLIC PANEL,BMP [CHEM] DAILY CBC WITH AUTO DIFF [HEME] DAILY - Plan Plan:: 05/22/19 0810am This patient was admitted late last night with bradycardia, syncope. The patient is taking Metoprolol. I admitted the patient and am holding his Metoprol due to bradycardia, syncope, and lightheadedness. The patient was given IV fluid bolus of 500ml. The patient this morning said he is feeling much better. He reports that he has not been lightheaded, dizzy and is feeling normal. Patient denies christy, dizziness, n, v, d, f, vision changes, cp, soa, weakness. The patient has been able to ambulate to the bathroom without difficulty of complaint. Patient labs are unremarkable, except his CR yesterday was 1.8, today 1.9. The patient has history of chronic CR elevation, so this is not far from his baseline. At times he has been greater than 2.0. I discussed with the patient getting up and ambulating throughout the hospital today. His HR is been just below 60 today on average, 54-60. Will continue hold Metoprolol this morning. Discussed with the patient possibility of going home this evening if his HR stays above 60 and he is asymptomatic. After further discussion with the patient, and his admit has been less than 24 hours, will keep observation admit until tomorrow. The patient will see his PCP to see if any further out patient workups are needed and if medications changes may be warranted. Will continue observation admit, see PCP tomorrow. 05/22/19 1245pm Patient HR is 70. Patient denies shortness of breath, cp, lightheaded. I will restart patient Lopressor, but will do 12.5mg BID to start at 8pm. PCP to see tomorrow to see if further adjustment is needed.
[2019-05-22] MEDS ORDERED: Aspirin 81 MG Tab.Chew*PT OWN MED PO SCH (10:00)
[2019-05-22] MEDS: Furosemide 20 MG Tab*PT OWN MED PO SCH (11:24)
[2019-05-22] MEDS: LISINOPRIL 20 MG PO SCH (11:25)
[2019-05-22] MEDS: LEVOTHYROXINE 175 MCG PO SCH (11:26)
[2019-05-22] MEDS: DICYCLOMINE 20 MG PO SCH ×2 (11:26→19:36)
[2019-05-22] MEDS: amLODIPine 10 MG Tab*PT OWN MED PO SCH (11:26)
[2019-05-22] MEDS: WARFARIN 5 MG PO SCH (12:06)
[2019-05-22] MEDS: GABAPENTIN 100 MG PO SCH ×2 (15:13→19:35)
--- NOTE | 2019-05-22 17:19 | PCM.SN ---
- Free Text/Narrative Note: 05/22/19 1700 ABEL Grewal reported to me she was ambulating the patient without difficulty, She reports [place] got [place] the way [place] and patient had oxygen saturation of 84%. She reports that he denied shortness of breath with this. She reports a second time she walked him and his oxygen saturation stayed above 90% RA, but he became lightheaded briefly. His HR currently is 56 at rest in room. Patient denies any symptoms currently. Patient does report that he did check his HR yesterday morning and it was 40, but he thought the machine was wrong because he was asymptomatic yesterday morning. At this time, I have not ordered a d- dimer. I have not angio his chest. Patient has a CR of 1.9, will not tolerate the dye. Also, patient current oxygen saturation is 95% RA, no dyspnea. Also, the patient is currently being anticoagulated. I have ordered an echo for this patient to hopefully be done tomorrow morning.
[2019-05-22] MEDS: Metoprolol Tartrate 25 MG Tab PO SCH (19:35)
[2019-05-22] MEDS ORDERED: Simvastatin 20 MG Tab*PT OWN MED PO SCH (20:00)
[2019-05-22] MEDS ORDERED: VITAMIN D3 PO SCH (20:00)
[2019-05-23] MEDS: Pantoprazole 40 MG Tab.CR PO SCH (06:28)
[2019-05-23] MEDS: LISINOPRIL 20 MG PO SCH (07:57)
[2019-05-23] MEDS: amLODIPine 10 MG Tab*PT OWN MED PO SCH (07:58)
[2019-05-23] MEDS: Furosemide 20 MG Tab*PT OWN MED PO SCH (07:58)
[2019-05-23] MEDS: Metoprolol Tartrate 25 MG Tab PO SCH (07:59)
[2019-05-23] MEDS: GABAPENTIN 100 MG PO SCH (08:02)
[2019-05-23] MEDS: Insulin Glargine,Human Rec. Analog 100 Units/ML 3 ML Pen SUBCUT SCH (08:07)
[2019-05-23] MEDS: Insulin Lispro 100 Units/ML 3 ML Vial SUBCUT SCH ×2 (08:09→12:30)
[2019-05-23] MEDS: DICYCLOMINE 20 MG PO SCH (08:10)
[2019-05-23] MEDS: LEVOTHYROXINE 175 MCG PO SCH (08:11)
[2019-05-23] MEDS: WARFARIN 5 MG PO SCH (12:30)
[2019-05-23 12:57] VITALS: BP 133/64; PULSE 46
--- NOTE | 2019-05-23 21:10 | PCM.DCSUM1 ---
Discharge Summary - Hospital Course Free Text/Narrative:: Patient presented to ER per EMS after a syncopal episode. Was bending down and leaning through a window talking to someone. States does recall feeling lightheaded, diaphoretic and ultimately had a syncopal episode. Bystander states was unresponsive for about 2 minutes. Upon awakening, patient felt nauseated. EMS was called. On arrival to ER, patient oriented x3. No chest pain, shortness of breath. Labs essentially negative. Creatinine 1.8. Heart rate 40s to 50s. Admitted, IV fluids started. Metoprolol held. Diagnosis: Stroke: No Modified Roya Scale: No Symptoms at All Modified Roya Scale Score: 0 - Discharge Data Discharge Date: 05/23/19 Discharge Disposition: Home, Self-Care 01 Condition: Good - Patient Summary/Data Complications: none Hospital Course: Patient doing well today. Has had issues with bradycardia yet at times. Did restart his Metoprolol yesterday as heart rate had improved but this am, down to 44 again after given am dose. Was up and ambulating in halls with staff, did have an episode of lightheadedness that last approximately 10 seconds yesterday. Today, denies any symptoms like that. He was also noted to drop his sat at one point but has not had any recurring concerns since. During that episode, patient denied any shortness of breath or chest pain. EKG does show sinus bradycardia, no areas of ischemia. Labs have improved, creatinine near to baseline now at 1.5. Troponin negative. Blood sugars running high first day , improved now. Will discharge home. Hold Metoprolol. Have patient keep log of blood pressures and bring to clinic with follow up appointment. - Patient Instructions Diet: Diabetic Diet Activity: As Tolerated - Discharge Plan *PRESCRIPTION DRUG MONITORING PROGRAM REVIEWED*: Not Applicable *COPY OF PRESCRIPTION DRUG MONITORING REPORT IN PATIENT LEN: Not Applicable Prescriptions/Med Rec: Metoprolol Tartrate [Lopressor] 12.5 mg PO Q12H #30 tablet Home Medications: Home Meds Cholecalciferol (Vitamin D3) [Vitamin D3] 5,000 unit PO BEDTIME 04/09/15 [ History] Insulin Lispro [HumaLOG] 3 - 5 units SUBCUT 0800,1200,1730 04/09/15 [History] Lisinopril 20 mg PO DAILY 04/09/15 [History] Sertraline HCl 100 mg PO DAILY 04/09/15 [History] Simvastatin [Zocor] 20 mg PO BEDTIME 04/09/15 [History] Insulin Glarg,Human.Rec.Analog [LantUS Solostar] 25 units SUBCUT QAM 07/20/16 [ History] Aspirin [Halfprin] 81 mg PO DAILY 06/10/17 [History] Dicyclomine [Bentyl] 20 mg PO BID 06/10/17 [History] Furosemide [Lasix] 20 mg PO DAILY 05/21/19 [History] Levothyroxine Sodium [Synthroid] 175 mcg PO DAILY 05/21/19 [History] Omeprazole 20 mg PO ACBREAKFAST 05/21/19 [History] Warfarin [Coumadin] 10 mg PO DAILY 05/21/19 [History] Gabapentin [Neurontin] 200 mg PO TID 05/22/19 [History] amLODIPine [Norvasc] 10 mg PO DAILY 05/22/19 [History] Metoprolol Tartrate [Lopressor] 12.5 mg PO Q12H #30 tablet 05/23/19 [Rx] Patient's Own Medication [Ptom] 1 each PO DAILY each 05/23/19 [Rx] Forms: ED Department Discharge Referrals: Tang Johnson MD [Primary Care Provider] - (Follow up with Dr. Johnson in one week, bring blood pressure log with to visit) - Discharge Summary/Plan Comment DC Time >30 min.: No - General Info Date of Service: 05/23/19 Admission Dx/Problem (Free Text: syncope Functional Status: Reports: Pain Controlled, Tolerating Diet, Ambulating - Review of Systems General: Reports: Weakness HEENT: Reports: No Symptoms Pulmonary: Denies: Shortness of Breath, Cough Cardiovascular: Denies: Chest Pain, Edema, Lightheadedness Gastrointestinal: Denies: Abdominal Pain, Nausea, Vomiting Genitourinary: Reports: No Symptoms Musculoskeletal: Reports: Leg Pain Neurological: Reports: Weakness Psychiatric: Reports: No Symptoms - Patient Data Vitals - Most Recent: Last Vital Signs Temp 97.2 F 05/23/19 12:00 Pulse 46 L 05/23/19 12:00 Resp 16 05/23/19 12:00 BP 133/64 05/23/19 12:00 Pulse Ox 95 05/23/19 12:00 Weight - Most Recent: 190 lb Lab Results - Last 24 hrs: Laboratory Results - last 24 hr 05/23/19 05/23/19 05/23/19 Range/Units 06:50 06:50 11:58 WBC 3.8 L (5.0-10.0) 10^3/uL RBC 4.35 L (4.50-6.00) 10^6/uL Hgb 12.8 L (14.0-18.0) g/dL Hct 38.0 L (40.0-54.0) % MCV 87.4 (82.0-94.0) fL MCH 29.4 (27.0-32.0) pg MCHC 33.7 (33.0-38.0) g/dL RDW Coeff of Melvin 13.4 (11.0-15.0) % Plt Count 129 L (150-400) 10^3/uL Neut % (Auto) 47.1 (35-85) % Lymph % (Auto) 34.9 (10-55) % [place] % (Auto) 13.1 (0-16) % Eos % (Auto) 1.8 (0-5) % Baso % (Auto) 3.1 H (0-3) % Neut # (Auto) 1.79 L (1.80-7.00) 10^3/uL Lymph # (Auto) 1.33 (1.00-4.80) 10^3/uL [place] # (Auto) 0.50 (0.00-0.80) 10^3/uL Eos # (Auto) 0.07 (0.00-0.45) 10^3/uL Baso # (Auto) 0.12 10^3/uL Sodium 139 (136-145) mEq/L Potassium 4.1 (3.5-5.0) mEq/L Chloride 105 (98-106) mEq/L Carbon Dioxide 28 (21-32) mmol/L BUN 34 H (7-18) mg/dL Creatinine 1.5 H (0.7-1.3) mg/dL Est Cr Clr Drug Dosing 47.50 mL/min Estimated GFR (MDRD) 47 L (>=60) mL/min Glucose 90 D (75-99) mg/dL POC Glucose 176 H (75-105) mg/dl Calcium 8.4 (8.4-10.1) mg/dL Med Orders - Current: Current Medications Discontinued Medications Acetaminophen (Tylenol) 650 mg PO Q4H PRN PRN Reason: Pain (Mild 1-3)/fever Hydrocodone Bitart/Acetaminophen ([place] 325-5 Mg) 1 tab PO Q4H PRN PRN Reason: Pain (moderate 4-6) Amlodipine Besylate (Norvasc) 10 mg PO DAILY [facility] Last Admin: 05/23/19 07:58 Dose: 10 mg Aspirin (Aspirin) 81 mg PO DAILY [facility] Last Admin: 05/22/19 12:31 Dose: Not Given Aspirin (Halfprin) 81 mg PO DAILY [facility] Last Admin: 05/23/19 07:57 Dose: 81 mg Dicyclomine HCl (Bentyl) 20 mg PO BID [facility] Last Admin: 05/22/19 12:31 Dose: Not Given Furosemide (Lasix) 20 mg PO DAILY [facility] Last Admin: 05/23/19 07:58 Dose: 20 mg Gabapentin (Neurontin) 600 mg PO TID [facility] Last Admin: 05/22/19 12:32 Dose: Not Given Gabapentin (Neurontin) 600 mg PO TID [facility] Gabapentin (Neurontin) 200 mg PO TID [facility] Last Admin: 05/23/19 08:02 Dose: 200 mg Sodium Chloride (Normal Saline) 250 mls @ 250 mls/hr IV .BOLUS [facility] Sodium Chloride (Normal Saline) 500 mls @ 500 mls/hr IV .BOLUS [facility] Last Admin: 05/21/19 22:15 Dose: 500 mls/hr Insulin Glargine (Lantus Solostar) 0 units SUBCUT QAM [facility] Last Admin: 05/23/19 08:07 Dose: 25 units Insulin Human Lispro (Humalog) 0 unit SUBCUT 0800,1200,1730 [facility] Last Admin: 05/23/19 12:30 Dose: 3 units Levothyroxine Sodium (Levothyroxine) 150 mcg PO DAILY [facility] Last Admin: 05/22/19 12:32 Dose: Not Given Lisinopril (Prinivil) 20 mg PO DAILY [facility] Last Admin: 05/23/19 07:57 Dose: 20 mg Metoprolol Tartrate (Lopressor) 12.5 mg PO Q12H [facility] Last Admin: 05/23/19 07:59 Dose: 12.5 mg Vitamin D3 *Pt Own (Med*) 5,000 unit PO BEDTIME [facility] Last Admin: 05/22/19 19:35 Dose: 5,000 unit Ondansetron HCl (Zofran) 4 mg IV Q6H PRN PRN Reason: Nausea/Vomiting Pantoprazole Sodium (Protonix) 40 mg PO ACBREAKFAST [facility] Last Admin: 05/23/19 06:28 Dose: 40 mg Dicyclomine 20 Mg (Cap*Pt Own Med*) 20 each PO BID [facility] Last Admin: 05/23/19 08:10 Dose: 20 each Levothyroxine 175 (Mcg Tab *Pt Own Med*) 1 each PO DAILY [facility] Last Admin: 05/23/19 08:11 Dose: 1 each Sertraline HCl (Zoloft) 100 mg PO DAILY [facility] Last Admin: 05/23/19 07:57 Dose: 100 mg Simvastatin (Zocor) 20 mg PO DAILY [facility] Last Admin: 05/22/19 12:32 Dose: Not Given Simvastatin (Zocor) 20 mg PO BEDTIME [facility] Last Admin: 05/22/19 19:36 Dose: 20 mg Warfarin Sodium (Coumadin) 10 mg PO DAILY@1200 [facility] Last Admin: 05/23/19 12:30 Dose: 10 mg - Exam General: Reports: Alert, Oriented HEENT: Reports: Mucous Membr. Moist/[place] Neck: Reports: Supple Lungs: Reports: Clear to Auscultation, Normal Respiratory Effort Cardiovascular: Reports: Regular Rhythm, Bradycardia GI/Abdominal Exam: Normal Bowel Sounds, Soft, Non-Tender Extremities: Normal Inspection, No Pedal Edema Skin: Reports: Warm, Dry Neurological: Reports: No New Focal Deficit *Q Meaningful Use (DIS) - VTE *Q VTE Anticoagulation Contraindications: Alternative [place] Request PT
== END 2019-05-23 13:10 | disposition home or self-care (01) ==
LOC: CC.ED 19:10 → CC.MS 20:53 → UNDOADMOB 20:53 → CC.MS 20:57
PROVIDERS: ADMIT Nurse Practitioner; ATTEND Family Medicine
DX: R55 Syncope and collapse (principal); R53.1 Weakness; R00.1 Bradycardia, unspecified; I10 Essential (primary) hypertension; K58.9 Irritable bowel syndrome, unspecified; M19.90 Unspecified osteoarthritis, unspecified site; E10.9 Type 1 diabetes mellitus without complications; E03.9 Hypothyroidism, unspecified; E55.9 Vitamin D deficiency, unspecified; E78.00 Pure hypercholesterolemia, unspecified; Z79.899 Other long term (current) drug therapy; Z79.4 Long term (current) use of insulin; Z79.82 Long term (current) use of aspirin; Z79.01 Long term (current) use of anticoagulants; Z88.1 Allergy status to other antibiotic agents; Z88.0 Allergy status to penicillin
CPT/HCPCS: 36415; 70450; 71046; 80048; 80053; 81001; 82550; 82962; 83615; 84484; 85025; 85610; 85730; 93005; 93306; 96360; 99285; A9270; G0378; J1815; J7040; 93010; 99217; 99220; 99225

== ENCOUNTER → 2019-12-09 | Day surgery (SDC) | payer OTHER, MEDICARE ==
[~2019-12-09] MED LIST: Lactated Ringers 1,000 ML IV SCH; Propofol 200 MG/20 ML SDV IV ONE
[2019-12-09 09:34] VITALS: BP 143/63; PULSE 51
--- NOTE | 2019-12-10 11:40 | OR ---
DATE OF OPERATION: 12/09/2019 PREOPERATIVE DIAGNOSIS: 1. HEMATOCHEZIA. 2. FAMILY HISTORY OF COLON CARCINOMA. POSTOPERATIVE DIAGNOSIS: 1. HEMATOCHEZIA. 2. FAMILY HISTORY OF COLON CARCINOMA. SURGEON: Tang Johnson MD PROCEDURE: DIAGNOSTIC COLONOSCOPY WITH FORCEPS POLYP REMOVAL X6, SNARE POLYP REMOVAL X1, BIOPSY X2. ANESTHESIA: MAC. COMPLICATIONS: None. SPECIMEN: 1. Colon polyps x7. 2. Rectal vault biopsy x2. FINDINGS: 1. Full-length colonoscopy. 2. Colon polyps numbering 7; 6 small sessile polyps of less than 0.5 cm and 1 larger tubular adenoma, distal sigmoid colon. 3. Proctitis, rectal vault, with friability and ulceration. RECOMMENDATIONS: Routine followup colonoscopy in 3 years pending path reports given the number of polyps and the size of one in the distal sigmoid, we will put the patient on Anusol HC suppositories until we get the pathology report on his rectal biopsies. INDICATIONS: Patient presented to [facility] with hematochezia. He has a family history of colon cancer. His last colonoscopy was about 4 years ago. He was sent for diagnostic endoscopy. DESCRIPTION OF PROCEDURE: The patient was prepped and draped, placed in the left lateral decubitus position. A lubricated Olympus colonoscope was inserted and easily advanced to the cecum. We were able to directly visualize the ileocecal valve and appendiceal orifice. The bowel prep was excellent. Upon withdrawal of the scope, the cecum appeared benign. In the [id number] ascending colon, the patient had a small flat inflammatory sessile polyp removed in its entirety with a forceps. In the [id number] transverse colon, the patient had a second sessile polyp also about 4 mm, removed with forceps. The descending colon and most of the sigmoid area appeared benign. In the mid-to- distal sigmoid at around 60 cm, the patient had a larger tubular adenoma of approximately a centimeter in size, we were able to easily snare this and suction into polyp trap #1. A smaller flat sessile polyp was within a centimeter of this, we removed with forceps. The rectosigmoid area had 3 small sessile polyps, again all removed with forceps without any complication. The rectal vault had no polyps or masses, but did have inflammatory change consistent with proctitis and some ulceration, very friable tissue. We did do 2 biopsies of this. It was difficult to retroflex in this gentleman who has a very shallow rectal vault, but upon direct withdrawal, no other masses were seen. Air was suctioned, scope removed without complication. JEYSON/SHERRELL /[id number]
== END ==
LOC: CC.SDS 07:36
PROVIDERS: ATTEND Family Medicine
DX: K92.1 Melena (principal); D12.7 Benign neoplasm of rectosigmoid junction; D12.2 Benign neoplasm of ascending colon; D12.4 Benign neoplasm of descending colon; D12.3 Benign neoplasm of transverse colon; K62.89 Other specified diseases of anus and rectum; E11.9 Type 2 diabetes mellitus without complications; N18.9 Chronic kidney disease, unspecified; I82.409 Acute embolism and thrombosis of unspecified deep veins of unspecified lower extremity; F17.210 Nicotine dependence, cigarettes, uncomplicated; E66.9 Obesity, unspecified; Z80.0 Family history of malignant neoplasm of digestive organs; Z88.1 Allergy status to other antibiotic agents; Z79.82 Long term (current) use of aspirin; Z79.4 Long term (current) use of insulin; Z79.01 Long term (current) use of anticoagulants; Z79.899 Other long term (current) drug therapy; Z68.30 Body mass index [BMI] 30.0-30.9, adult
CPT/HCPCS: 36415; 45385; 85610; J2704; J7120

== ENCOUNTER 2021-06-03 17:50 | Emergency (ER) | payer OTHER, MEDICARE ==
--- NOTE | 2021-06-03 18:05 | EDM.PDOC ---
ED HPI GENERAL MEDICAL PROBLEM - General Chief Complaint: Gastrointestinal Problem Stated Complaint: vomiting Time Seen by Provider: 06/03/21 18:00 Source of Information: Reports: Patient History Limitations: Reports: No Limitations - History of Present Illness INITIAL COMMENTS - FREE TEXT/NARRATIVE: Elliot is a 65 yo male who presents to the ED with c/o 3 episodes of vomiting t hroughout the day today. He reports he first vomited around 11 am this morning. Was working in the warm conditions and was able to continue to work. He reports he did feel somewhat weak and did fall down. He does have lacerations noted to his forehead and nose. Is on Coumadin, so trauma code was initiated. Denies any dizziness, chest pain, or shortness of breath prior to fall. Denies any LOC. 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 Does feel the heat bothered him some today. Does report he chronically has a poor appetite. Is an uncontrolled type I diabetic. Did not check his blood sugar today. No other symptoms. Onset: Today Onset Date: 06/03/21 Onset Time: 11:00 Duration: Intermittent Location: Reports: Head Quality: Reports: Ache Severity: Mild Associated Symptoms: Reports: Headaches, Loss of Appetite (chronic), Nausea/Vomiting, Weakness. Denies: Confusion, Chest Pain, Cough, cough w sputum, Diaphoresis, Fever/Chills, Malaise, Rash, Seizure, Shortness of Breath, Syncope Headache Pain Score (Numeric/FACES): 2 - Related Data Allergies Allergy/AdvReac Type Severity Reaction Status Date / Time cephalexin [Cephalexin] Allergy Mild Hives Verified 06/03/21 18:03 Penicillins Allergy Rash Verified 06/03/21 18:03 Home Meds: Home Meds Cholecalciferol (Vitamin D3) [Vitamin D3] 5,000 unit PO BEDTIME 04/09/15 [History] Lisinopril 10 mg PO DAILY 04/09/15 [History] Sertraline HCl 100 mg PO DAILY 04/09/15 [History] Simvastatin [Zocor] 20 mg PO BEDTIME 04/09/15 [History] Aspirin [Halfprin] 81 mg PO DAILY 06/10/17 [History] Dicyclomine [Bentyl] 20 mg PO BID 06/10/17 [History] Levothyroxine Sodium [Synthroid] 175 mcg PO DAILY 05/21/19 [History] Omeprazole 20 mg PO ACBREAKFAST 05/21/19 [History] Warfarin [Coumadin] 10 mg PO DAILY 05/21/19 [History] Gabapentin [Neurontin] 200 mg PO TID 05/22/19 [History] amLODIPine [Norvasc] 10 mg PO DAILY 05/22/19 [History] Insulin Aspart [NovoLOG] 5 - 6 unit SUBCUT WITHMEALSANDBED 12/06/19 [History] Insulin Degludec [Tresiba] 18 unit SQ DAILY 12/06/19 [History] Past Medical History HEENT History: Reports: Cataract, Impaired Vision, Sinusitis Cardiovascular History: Reports: High Cholesterol, Hypertension Respiratory History: Reports: None Gastrointestinal History: Reports: Irritable Bowel Syndrome Genitourinary History: Reports: Prostate Disorder, Other (See Below) Other Genitourinary History: 2006 prostate removed , dx of CA. ELEVATED PSA Musculoskeletal History: Reports: Arthritis Other Musculoskeletal History: SPINAL STENOSIS, BONE SPURS ON SPINAL COLUMN Neurological History: Reports: Concussion, CVA, Neuropathy, Diabetic, Other (See Below) Other Neuro History: CVA 2005. SPINAL STENOSIS, LUMBAR Psychiatric History: Reports: Depression Endocrine/Metabolic History: Reports: Diabetes, Type I, Hypothyroidism, Vitamin D Deficiency Hematologic History: Reports: None Immunologic History: Reports: None Oncologic (Cancer) History: Reports: Prostate Other Oncologic History: melanoma right great toe Other Dermatologic History: hx of yeast infections, takes lamicil. - Infectious Disease History Infectious Disease History: Reports: Chicken Pox, Measles - Past Surgical History HEENT Surgical History: Reports: None Cardiovascular Surgical History: Reports: None Respiratory Surgical History: Reports: None GI Surgical History: Reports: Colonoscopy Male Surgical History: Reports: Prostatectomy Other Musculoskeletal Surgeries/Procedures:: Laminectomy on 04/03/2015 Oncologic Surgical History: Reports: None Other Oncologic Surgeries/Procedures: Prostatectomy in 2006 Social & Family History - Family History Family Medical History: No Pertinent Family History - Caffeine Use Caffeine Use: Reports: Coffee Caffeine Use Comment: 8 OZ - Living Situation & Occupation Living situation: Reports: , with Spouse Occupation: Retired ED ROS GENERAL - Review of Systems Review Of Systems: See Below Constitutional: Reports: Weakness, Fatigue, Decreased Appetite. Denies: Fever, Chills, Malaise, Diaphoresis HEENT: Reports: No Symptoms Respiratory: Reports: No Symptoms. Denies: Shortness of Breath, Cough Cardiovascular: Reports: Lightheadedness. Denies: Chest Pain, Dyspnea on Exertion, Edema, Palpitations, Syncope Endocrine: Reports: Fatigue, High Glucose GI/Abdominal: Reports: Decreased Appetite, Nausea, Vomiting. Denies: Abdominal Pain, Black Stool, Bloody Stool, Constipation, Diarrhea, Distension, Hematemesis, Hematochezia, Melena : Reports: No Symptoms Musculoskeletal: Reports: No Symptoms Skin: Reports: Wound (laceration to forehead and nose as well as left elbow) Neurological: Reports: Headache, Weakness. Denies: Confusion, Dizziness, Numbness, Paresthesia, Seizure, Syncope, Tingling, Tremors, Difficulty Walking, Change in Speech Psychiatric: Reports: No Symptoms Hematologic/Lymphatic: Reports: Easy Bruising Immunologic: Reports: No Symptoms ED EXAM, GI/ABD - Physical Exam Exam: See Below Exam Limited By: No Limitations General Appearance: Alert, WD/WN, No Apparent Distress Eyes: Bilateral: Normal Appearance, EOMI Ears: Normal External Exam, Normal Canal, Hearing Grossly Normal, Normal TMs Nose: Normal Mucosa, No Blood, Other (5 mm laceration to left side of nose) Throat/Mouth: Normal Inspection, Normal Lips, Normal Teeth, Normal Gums, Normal Oropharynx, Normal Voice, No Airway Compromise Head: Normocephalic, Other (7 mm laceration to mid forehead). No: Facial Swelling, Facial Tenderness Neck: Normal Inspection, Supple, Non-Tender, Full Range of Motion Respiratory/Chest: No Respiratory Distress, Lungs Clear, Normal Breath Sounds, No Accessory Muscle Use, Chest Non-Tender Cardiovascular: Normal Peripheral Pulses, Regular Rate, Rhythm, No Edema, No Gallop, No JVD, No Murmur, No Rub GI/Abdominal Exam: Normal Bowel Sounds, Soft, Non-Tender, No Organomegaly, No Distention, No Abnormal Bruit, No Mass, Pelvis Stable Back Exam: Normal Inspection, Full Range of Motion, NT Extremities: Normal Range of Motion, Non-Tender, Normal Capillary Refill Neurological: Alert, Oriented, CN II-XII Intact, Normal Cognition, Normal Gait, Normal Reflexes, No Motor/Sensory Deficits Psychiatric: Normal Affect, Normal Mood Skin Exam: Wound/Incision (laceration to mid forehead, left nose and right elbow) Course - Vital Signs Last Recorded V/S: Last Vital Signs Temp 98.1 F 06/03/21 19:57 Pulse 69 06/03/21 19:57 Resp 20 06/03/21 19:57 BP 127/75 06/03/21 19:57 Pulse Ox 96 06/03/21 19:57 - Orders/Labs/Meds Labs: Laboratory Tests 06/03/21 06/03/21 06/03/21 Range/Units 18:00 18:00 18:00 WBC 6.3 (4.0-11.0) 10^3/uL RBC 5.30 (4.50-6.00) x10^6/uL Hgb 14.8 (14.0-18.0) g/dL Hct 43.8 (42.0-52.0) % MCV 82.6 L (83.0-97.0) fL MCH 27.9 (27.0-32.0) pg MCHC 33.8 (32.0-36.0) g/dL RDW Coeff of Melvin 13.5 (11.0-15.0) % Plt Count 114 L (150-400) 10^3/uL Immature Gran % (Auto) 2.1 (0.0-4.9) % Neut % (Auto) 73.8 H (41-71) % Lymph % (Auto) 10.8 L (24-44) % [place] % (Auto) 12.6 H (0-10) % Eos % (Auto) 0.2 (0-6) % Baso % (Auto) 0.5 (0-1) % Neut # (Auto) 4.64 (1.80-8.00) x10^3/uL Lymph # (Auto) 0.68 (0.60-5.00) 10^3/uL [place] # (Auto) 0.79 (0.00-1.50) 10^3/uL Eos # (Auto) 0.01 (0.00-1.50) 10^3/uL Baso # (Auto) 0.03 (0.00-0.50) 10^3/uL Immature Gran # (Auto) 0.13 (0.00-0.49) 10^3/uL PT 25.5 H (9.7-12.3) SEC INR 2.48 H (0.92-1.18) Sodium 135 L (136-145) mEq/L Potassium 4.5 (3.5-5.0) mEq/L Chloride 99 (98-106) mEq/L Carbon Dioxide 26 (21-32) mmol/L BUN 36 H (7-18) mg/dL Creatinine 2.3 H (0.7-1.3) mg/dL Est Cr Clr Drug Dosing 30.15 mL/min Estimated GFR (MDRD) 29 L (>=60) mL/min Glucose 137 H (75-99) mg/dL POC Glucose (75-105) mg/dL Calcium 8.9 (8.4-10.1) mg/dL Magnesium 1.9 (1.8-2.4) mg/dL Total Bilirubin 0.3 (0.0-1.0) mg/dL AST 23 (15-37) U/L ALT 25 (12-78) U/L Alkaline Phosphatase 80 (46-116) U/L Creatine Kinase 435 H (35-232) U/L Troponin I < 0.017 (0.00-0.06) ng/mL Total Protein 6.8 (6.4-8.2) g/dL Albumin 2.9 L (3.4-5.0) g/dL Amylase 57 (25-115) U/L Lipase 36 L (73-393) U/L Urine Color (YELLOW) Urine Appearance (CLEAR) Urine pH (4.5-8.0) Ur Specific Fernley (1.003-1.020) Urine Protein (NEGATIVE) mg/dL Urine Glucose (UA) (NEGATIVE) mg/dL Urine Ketones (NEGATIVE) mg/dL Urine Occult Blood (NEGATIVE) Urine Nitrite (NEGATIVE) Urine Bilirubin (NEGATIVE) Urine Urobilinogen (0.2-1.0) EU/dL Ur Leukocyte Esterase (NEGATIVE) U Hyaline Cast (Auto) (NOT SEEN) /LPF Urine RBC (0-5) /HPF Urine WBC (0-5) /HPF Ur Epithelial Cells (NOT SEEN) /HPF Other Crystals (NOT SEEN) /HPF Amorphous Sediment (NOT SEEN) /HPF 06/03/21 06/03/21 Range/Units 18:30 18:55 WBC (4.0-11.0) 10^3/uL RBC (4.50-6.00) x10^6/uL Hgb (14.0-18.0) g/dL Hct (42.0-52.0) % MCV (83.0-97.0) fL MCH (27.0-32.0) pg MCHC (32.0-36.0) g/dL RDW Coeff of Melvin (11.0-15.0) % Plt Count (150-400) 10^3/uL Immature Gran % (Auto) (0.0-4.9) % Neut % (Auto) (41-71) % Lymph % (Auto) (24-44) % [place] % (Auto) (0-10) % Eos % (Auto) (0-6) % Baso % (Auto) (0-1) % Neut # (Auto) (1.80-8.00) x10^3/uL Lymph # (Auto) (0.60-5.00) 10^3/uL [place] # (Auto) (0.00-1.50) 10^3/uL Eos # (Auto) (0.00-1.50) 10^3/uL Baso # (Auto) (0.00-0.50) 10^3/uL Immature Gran # (Auto) (0.00-0.49) 10^3/uL PT (9.7-12.3) SEC INR (0.92-1.18) Sodium (136-145) mEq/L Potassium (3.5-5.0) mEq/L Chloride (98-106) mEq/L Carbon Dioxide (21-32) mmol/L BUN (7-18) mg/dL Creatinine (0.7-1.3) mg/dL Est Cr Clr Drug Dosing mL/min Estimated GFR (MDRD) (>=60) mL/min Glucose (75-99) mg/dL POC Glucose 158 H (75-105) mg/dL Calcium (8.4-10.1) mg/dL Magnesium (1.8-2.4) mg/dL Total Bilirubin (0.0-1.0) mg/dL AST (15-37) U/L ALT (12-78) U/L Alkaline Phosphatase (46-116) U/L Creatine Kinase (35-232) U/L Troponin I (0.00-0.06) ng/mL Total Protein (6.4-8.2) g/dL Albumin (3.4-5.0) g/dL Amylase (25-115) U/L Lipase (73-393) U/L Urine Color Dark yellow (YELLOW) Urine Appearance Cloudy (CLEAR) Urine pH 5.0 (4.5-8.0) Ur Specific Fernley >= 1.030 H (1.003-1.020) Urine Protein >=300 H (NEGATIVE) mg/dL Urine Glucose (UA) Negative (NEGATIVE) mg/dL Urine Ketones 15 H (NEGATIVE) mg/dL Urine Occult Blood Moderate H (NEGATIVE) Urine Nitrite Negative (NEGATIVE) Urine Bilirubin Small H (NEGATIVE) Urine Urobilinogen 0.2 (0.2-1.0) EU/dL Ur Leukocyte Esterase Negative (NEGATIVE) U Hyaline Cast (Auto) Few H (NOT SEEN) /LPF Urine RBC 5-10 H (0-5) /HPF Urine WBC 0-5 (0-5) /HPF Ur Epithelial Cells Few H (NOT SEEN) /HPF Other Crystals Few H (NOT SEEN) /HPF Amorphous Sediment Moderate H (NOT SEEN) /HPF Meds: Medications Discontinued Medications Generic Name Dose Route Start Last Admin Trade Name Freq PRN Reason Stop Dose Admin Sodium Chloride 1,000 mls @ 999 mls/hr 06/03/21 18:28 06/03/21 18:40 Normal Saline IV 06/03/21 19:28 999 mls/hr .BOLUS ONE Administration Ondansetron HCl 1 packet 06/03/21 19:09 06/03/21 19:53 Take Home: Ondansetron 4 Mg Tab.Dis, 2 Tab Pack PO 06/03/21 19:10 1 packet ONETIME ONE Administration Ondansetron HCl 8 mg 06/03/21 19:30 Ondansetron 4 Mg Tab.Dis .ROUTE 06/03/21 19:31 .STK-MED ONE Departure - Departure Time of Disposition: 19:08 Disposition: Home, Self-Care 01 Condition: Good Clinical Impression: Dehydration Vomiting Qualifiers: Vomiting type: unspecified Vomiting Intractability: non-intractable Nausea presence: with nausea Qualified Code(s): R11.2 - Nausea with vomiting, unspecified Heat exhaustion Qualifiers: Encounter type: initial encounter Qualified Code(s): T67.5XXA - Heat exhaustion, unspecified, initial encounter - Discharge Information *PRESCRIPTION DRUG MONITORING PROGRAM REVIEWED*: Not Applicable *COPY OF PRESCRIPTION DRUG MONITORING REPORT IN PATIENT LEN: Not Applicable Instructions: Heat Exhaustion, Dehydration, Adult, [id number], Nausea and Vomiting, Adult Referrals: Tang Johnson MD [Primary Care Provider] - Forms: ED Department Discharge Additional Instructions: - Rest and push fluids - Avoid overexertion in the heat - Zofran 1 tablet every 6 hours as needed for nausea/vomiting - Follow up for recheck if symptoms worsen or do not seem to be improving - Return to ED for emergent needs Sepsis Event Note (ED) - Evaluation Sepsis Screening Result: No Definite Risk - Problem List & Annotations (1) Heat exhaustion SNOMED Code(s): 58965531 Code(s): T67.5XXA - HEAT EXHAUSTION, UNSPECIFIED, INITIAL ENCOUNTER Status: Acute Qualifiers: Encounter type: initial encounter Qualified Code(s): T67.5XXA - Heat exhaustion, unspecified, initial encounter (2) Vomiting SNOMED Code(s): 012674380 Code(s): R11.10 - VOMITING, UNSPECIFIED Status: Acute Qualifiers: Vomiting type: unspecified Vomiting Intractability: non-intractable Nausea presence: with nausea Qualified Code(s): R11.2 - Nausea with vomiting, unspecified (3) Dehydration SNOMED Code(s): 62528237 Code(s): E86.0 - DEHYDRATION Status: Acute (4) Facial laceration SNOMED Code(s): 283827640 Code(s): S01.81XA - LACERATION W/O FOREIGN BODY OF OTH PART OF HEAD, INIT ENCNTR Status: Acute Qualifiers: Encounter type: initial encounter Qualified Code(s): S01.81XA - Laceration without foreign body of other part of head, initial encounter - Problem List Review Problem List Initiated/Reviewed/Updated: Yes - Assessment/Plan Assessment:: Heat Exhaustion Vomiting Dehydration Facial laceration Plan: 65 yo male presents to the ED with c/o vomiting x 3 episodes today. After furthe r review, did fall earlier today, around 2 pm and hit head. He is on Coumadin so trauma code was called. Head CT negative for acute findings. Lab work remarkable for NA 135, creatinine 2.3, glucose 137. Baseline creatinine 1.9. Spec grav elevated on UA. Patient was given 1 L NS fluid bolus. Labs otherwise all stable. Patient did not have any nausea or vomiting while in the ED. He will be sent home with Zofran to use as needed for nausea/vomiting. Recommend he rest and avoid excessive heat exposure. Keep facial and elbow lacerations clean and dry. May use EDISON as needed. Trauma code called due to head injury in patient on anticoagulants. Patient has no other injuries or c/o pain so no further imaging warranted. Patient discharge home in stable condition. Is advised to follow up if symptoms worsen or do not improve. Patient and family verbalized understanding.
[2021-06-03 18:26] LABS: CHLORIDE,CL 99 mEq/L (98-106); SODIUM,NA 135 mEq/L (136-145)
[2021-06-03] MEDS: Sodium Chloride 0.9% 1,000 ML IV ONE (18:40)
[2021-06-03] MEDS ORDERED: Take Home: Ondansetron 4 MG Tab.DIS, 2 Tab Pack ONE (19:30)
[2021-06-03] MEDS ORDERED: Ondansetron 4 MG Tab.DIS ONE (19:30)
[2021-06-03] MEDS: Take Home: Ondansetron 4 MG Tab.DIS, 2 Tab Pack PO ONE (19:53)
[2021-06-03 20:00] VITALS: BP 127/75; PULSE 69
== END 2021-06-03 19:57 | disposition home or self-care (01) ==
LOC: SUPCPDRO 17:50 → CC.ED 17:50
DX: T67.5XXA Heat exhaustion, unspecified, initial encounter (principal); S01.21XA Laceration without foreign body of nose, initial encounter; S01.111A Laceration without foreign body of right eyelid and periocular area, initial encounter; S01.81XA Laceration without foreign body of other part of head, initial encounter; R11.2 Nausea with vomiting, unspecified; E86.0 Dehydration; E78.00 Pure hypercholesterolemia, unspecified; I10 Essential (primary) hypertension; E10.9 Type 1 diabetes mellitus without complications; E03.9 Hypothyroidism, unspecified; Z79.4 Long term (current) use of insulin; Z79.01 Long term (current) use of anticoagulants; Z79.899 Other long term (current) drug therapy; Z88.0 Allergy status to penicillin; Z88.1 Allergy status to other antibiotic agents; W18.39XA Other fall on same level, initial encounter
CPT/HCPCS: 36415; 70450; 80053; 81001; 82150; 82550; 82947; 83690; 83735; 84484; 85025; 85610; 93005; 99284-25; A9270-GY; J7030

== ENCOUNTER 2022-07-16 19:00 | Emergency (ER) | payer OTHER, MEDICARE ==
[2022-07-16 19:33] VITALS: BP 162/79; PULSE 72
== END 2022-07-16 20:40 | disposition home or self-care (01) ==
LOC: CC.ED 19:00
DX: S80.02XA Contusion of left knee, initial encounter (principal); S89.92XA Unspecified injury of left lower leg, initial encounter; E78.00 Pure hypercholesterolemia, unspecified; I10 Essential (primary) hypertension; E10.9 Type 1 diabetes mellitus without complications; F17.210 Nicotine dependence, cigarettes, uncomplicated; Z88.1 Allergy status to other antibiotic agents; Z88.0 Allergy status to penicillin; Z79.899 Other long term (current) drug therapy; Z79.82 Long term (current) use of aspirin; Z79.01 Long term (current) use of anticoagulants; W18.39XA Other fall on same level, initial encounter
CPT/HCPCS: 73560-LT; 99283

== ENCOUNTER → 2023-01-23 | Day surgery (SDC) | payer MEDICARE, BC ==
[~2023-01-23] MED LIST changes: +Ketamine 200 MG/20 ML MDV ONE; -Lactated Ringers 1,000 ML IV SCH; +Phenylephrine 1% 10 MG/ML SDV ONE; -Propofol 200 MG/20 ML SDV IV ONE; +Propofol 200 MG/20 ML SDV ONE; +ePHEDrine 50 MG/ML SDV ONE; +fentaNYL 50 MCG/ML SDV ONE
[2023-01-23] MEDS: Lactated Ringers 1,000 ML IV SCH (07:28)
[2023-01-23 12:20] VITALS: BP 131/65; PULSE 63
== END ==
LOC: CC.SDS 07:03
PROVIDERS: ATTEND Family Medicine
DX: D12.7 Benign neoplasm of rectosigmoid junction (principal); D12.2 Benign neoplasm of ascending colon; D12.5 Benign neoplasm of sigmoid colon; I48.0 Paroxysmal atrial fibrillation; I12.9 Hypertensive chronic kidney disease with stage 1 through stage 4 chronic kidney disease, or unspecified chronic kidney disease; N18.9 Chronic kidney disease, unspecified; E11.22 Type 2 diabetes mellitus with diabetic chronic kidney disease; F32.A Depression, unspecified; E11.40 Type 2 diabetes mellitus with diabetic neuropathy, unspecified; E11.3393 Type 2 diabetes mellitus with moderate nonproliferative diabetic retinopathy without macular edema, bilateral; K21.9 Gastro-esophageal reflux disease without esophagitis; E78.5 Hyperlipidemia, unspecified; E03.9 Hypothyroidism, unspecified; K58.9 Irritable bowel syndrome, unspecified; F17.200 Nicotine dependence, unspecified, uncomplicated; M48.061 Spinal stenosis, lumbar region without neurogenic claudication; D69.6 Thrombocytopenia, unspecified; Z88.0 Allergy status to penicillin; Z88.1 Allergy status to other antibiotic agents; Z79.899 Other long term (current) drug therapy; Z79.82 Long term (current) use of aspirin; Z79.01 Long term (current) use of anticoagulants; Z79.890 Hormone replacement therapy
CPT/HCPCS: 00811; 36415; 85610; 88305; J2370; J2704; J3010; J3490; J7120

== ENCOUNTER 2023-07-03 05:49 | Emergency (ER) | payer MEDICARE, BC ==
[2023-07-03] MEDS ORDERED: Sodium Chloride 0.9% 1,000 ML IV ONE (06:31)
[2023-07-03] MEDS ORDERED: Ondansetron 4 MG/2 ML SDV IVPUSH ONE (06:45)
[2023-07-03 06:50] LABS: BASOPHILS ABSOLUTE AUTO 0.02 10^3/uL (0.00-0.50); BASOPHILS PERCENT AUTO 0.3 % (0-1); EOSINOPHILS ABSOLUTE AUTO 0.01 10^3/uL (0.00-1.50); EOSINOPHILS PERCENT AUTO 0.2 % (0-6); HEMOGLOBIN 14.7 g/dL (14.0-18.0); IMMATURE GRAN ABSOLUTE AUTO 0.26 10^3/uL (0.00-0.49); LYMPHOCYTES ABSOLUTE AUTO 0.32 10^3/uL (0.60-5.00); LYMPHOCYTES PERCENT AUTO 4.9 % (24-44); MEAN CORPUSCULAR HEMOGLOBIN 27.8 pg (27.0-32.0); MEAN CORPUSCULAR HGB CONC 32.7 g/dL (32.0-36.0); MEAN CORPUSCULAR VOLUME 85.2 fL (83.0-97.0); MONOCYTES ABSOLUTE AUTO 0.47 10^3/uL (0.00-1.50); MONOCYTES PERCENT AUTO 7.2 % (0-10); NEUTROPHILS ABSOLUTE AUTO 5.48 x10^3/uL (1.80-8.00); NEUTROPHILS PERCENT AUTO 83.4 % (41-71); PLATELET COUNT,PLT 76 10^3/uL (150-400); RED BLOOD CELL COUNT 5.28 x10^6/uL (4.50-6.00); WHITE BLOOD CELL COUNT,WBC 6.6 10^3/uL (4.0-11.0)
[2023-07-03 06:53] LABS: LACTIC ACID 1.5 mmol/L (0.4-2.0)
[2023-07-03 06:54] LABS: ALANINE AMINOTRANSFERASE,ALT 14 U/L (12-78); ALBUMIN 2.8 g/dL (3.4-5.0); ALKALINE PHOSPHATASE 91 U/L (46-116); ASPARTATE AMNIOTRANSFERASE,AST 10 U/L (15-37); BILIRUBIN TOTAL 0.4 mg/dL (0.0-1.0); BLOOD UREA NITROGEN,BUN 51 mg/dL (7-18); CALCIUM 9.1 mg/dL (8.4-10.1); CARBON DIOXIDE,CO2 21 mmol/L (21-32); CHLORIDE,CL 88 mEq/L (98-106); EST CRCL DRUG DOSING (CG) 15.49 mL/min; MAGNESIUM 1.8 mg/dL (1.8-2.4); POTASSIUM,K 5.2 mEq/L (3.5-5.0); PROTEIN TOTAL,TP 7.7 g/dL (6.4-8.2); SODIUM,NA 125 mEq/L (136-145)
[2023-07-03 07:04] LABS: CREATININE 4.5 mg/dL (0.7-1.3); ESTIMATED GFR 13 mL/min (>=60); ETHANOL BLOOD MEDICAL < 3 mg/dL (0-3); GLUCOSE RANDOM 812 mg/dL (75-99)
[2023-07-03] MEDS ORDERED: Glucagon,Human Recombinant 1 MG Vial IM PRN ×2 (07:05→08:33)
[2023-07-03] MEDS ORDERED: Insulin Regular, Human 100 Units/ML 3 ML Vial IV ONE ×2 (07:05→08:33)
[2023-07-03] MEDS ORDERED: 50% Dextrose in Water 50 ML Syringe IVPUSH PRN ×2 (07:05→08:33)
[2023-07-03 07:08] LABS: INR 1.47 (0.92-1.18); PROTHROMBIN TIME 14.9 SEC (9.3-11.3); PTT,PARTIAL THROMBOPLSTIN TIME 32.8 SEC (20.0-30.0)
[2023-07-03] MEDS ORDERED: Iopamidol 755 Mg/ML 100 ML Bottle IVPUSH ONE (08:07)
[2023-07-03 08:45] LABS: APPEARANCE,URINE CLEAR (CLEAR); BILIRUBIN,URINE NEGATIVE (NEGATIVE); COLOR,URINE YELLOW (YELLOW); GLUCOSE,URINE 500 mg/dL (NEGATIVE); KETONES,URINE 40 mg/dL (NEGATIVE); LEUKOCYTE ESTERASE,URINE NEGATIVE (NEGATIVE); NITRITE,URINE NEGATIVE (NEGATIVE); OCCULT BLOOD,URINE MODERATE (NEGATIVE); PROTEIN,URINE >=300 mg/dL (NEGATIVE); UROBILINOGEN,URINE 0.2 EU/dL (0.2-1.0)
[2023-07-03 08:55] LABS: RBC,URINE 30-40 /HPF (0-5)
[2023-07-03 08:56] LABS: BACTERIA,URINE FEW /HPF (NOT SEEN); EPITHELIAL CELLS,URINE OCCASIONAL /HPF (NOT SEEN); WBC,URINE 0-5 /HPF (0-5)
[2023-07-03 08:58] LABS: AMPHETAMINES,URINE NEGATIVE (NEGATIVE); BARBITURATES,URINE NEGATIVE (NEGATIVE); BENZODIAZEPINE,URINE NEGATIVE (NEGATIVE); MDMA (ECSTASY), URINE NEGATIVE (NEGATIVE); METHADONE,URINE NEGATIVE (NEGATIVE); METHAMPHETAMINES,URINE NEGATIVE (NEGATIVE); OPIATES,URINE NEGATIVE (NEGATIVE); OXYCODONE,URINE NEGATIVE (NEGATIVE); PHENCYCLIDINE,URINE NEGATIVE (NEGATIVE); TCA,URINE NEGATIVE (NEGATIVE)
[2023-07-03] MEDS ORDERED: Metoclopramide 10 MG/2 ML SDV IVPUSH ONE (08:59)
[2023-07-03] MEDS: Insulin Regular in 0.9 % NACL 100 ML IV SCH ×2 (09:00→12:40)
[2023-07-03] MEDS ORDERED: ceFAZolin 2 GM Vial IVPUSH ONE (09:40)
[2023-07-03] MEDS ORDERED: Potassium Chloride Riders 20 MEQ in Premix Bag 1 BAG IV ONE ×2 (10:08→11:10)
[2023-07-03 12:10] LABS: CALCIUM 9.1 mg/dL (8.4-10.1); EST CRCL DRUG DOSING (CG) 16.21 mL/min; POTASSIUM,K 5.4 mEq/L (3.5-5.0)
[2023-07-03 12:32] LABS: CREATININE 4.3 mg/dL (0.7-1.3)
[2023-07-03 12:35] VITALS: PULSE 72
[2023-07-03 12:46] VITALS: BP 147/71
== END 2023-07-03 13:02 ==
LOC: CC.ED 05:49
DX: T81.49XA Infection following a procedure, other surgical site, initial encounter (principal); T82.590A Other mechanical complication of surgically created arteriovenous fistula, initial encounter; E13.10 Other specified diabetes mellitus with ketoacidosis without coma; G93.41 Metabolic encephalopathy; E78.00 Pure hypercholesterolemia, unspecified; I10 Essential (primary) hypertension; E03.9 Hypothyroidism, unspecified; Z88.0 Allergy status to penicillin; Z88.1 Allergy status to other antibiotic agents; Z79.899 Other long term (current) drug therapy; Z79.82 Long term (current) use of aspirin; Z79.01 Long term (current) use of anticoagulants; Z72.0 Tobacco use
CPT/HCPCS: 36415; 51702; 70450; 70496; 70498; 71045; 73201-LT; 80048; 80053; 80305-QW; 80307; 81001; 82800; 82947; 83605; 83735; 83880; 84132; 84484; 85025; 85610; 85730; 87040; 93005; 93010; 96361; 96365; 96366; 96375; 99291; 99291-25; 99292; J0690; J1815-GY; J2405; J2765; J3480; J7030; Q9967

== ENCOUNTER 2025-03-09 17:26 | Emergency (ER) | payer MEDICARE, BC ==
[2025-03-09 17:36] VITALS: BP 109/69; PULSE 92
[2025-03-09] MEDS: Take Home: Acetaminophen/HYDROcodone 325-5 MG, 2 Tab Pack PO ONE (18:26)
== END 2025-03-09 18:27 | disposition home or self-care (01) ==
LOC: CC.ED 17:26
DX: S22.31XA Fracture of one rib, right side, initial encounter for closed fracture (principal); E78.00 Pure hypercholesterolemia, unspecified; I10 Essential (primary) hypertension; Z86.73 Personal history of transient ischemic attack (TIA), and cerebral infarction without residual deficits; E10.9 Type 1 diabetes mellitus without complications; Z88.1 Allergy status to other antibiotic agents; Z88.0 Allergy status to penicillin; Z79.899 Other long term (current) drug therapy; Z79.4 Long term (current) use of insulin; Z79.01 Long term (current) use of anticoagulants; Z79.890 Hormone replacement therapy; E03.9 Hypothyroidism, unspecified; W01.198A Fall on same level from slipping, tripping and stumbling with subsequent striking against other object, initial encounter; Y93.89 Activity, other specified
CPT/HCPCS: 71101-RT; 99283; A9270-GY

== ENCOUNTER 2025-03-16 12:26 | Emergency (ER) | payer MEDICARE, BC ==
[2025-03-16 13:07] LABS: BASOPHILS ABSOLUTE AUTO 0.03 10^3/uL (0.00-0.50); BASOPHILS PERCENT AUTO 0.4 % (0-1); EOSINOPHILS ABSOLUTE AUTO 0.01 10^3/uL (0.00-1.50); EOSINOPHILS PERCENT AUTO 0.1 % (0-6); HEMATOCRIT 37.3 % (42.0-52.0); HEMOGLOBIN 12.5 g/dL (14.0-18.0); IMMATURE GRAN ABSOLUTE AUTO 0.39 10^3/uL (0.00-0.49); IMMATURE GRAN PERCENT AUTO 5.5 % (0.0-4.9); LYMPHOCYTES ABSOLUTE AUTO 0.29 10^3/uL (0.60-5.00); LYMPHOCYTES PERCENT AUTO 4.1 % (24-44); MEAN CORPUSCULAR HEMOGLOBIN 30.7 pg (27.0-32.0); MEAN CORPUSCULAR HGB CONC 33.5 g/dL (32.0-36.0); MEAN CORPUSCULAR VOLUME 91.6 fL (83.0-97.0); MONOCYTES ABSOLUTE AUTO 1.07 10^3/uL (0.00-1.50); NEUTROPHILS ABSOLUTE AUTO 5.35 x10^3/uL (1.80-8.00); NEUTROPHILS PERCENT AUTO 74.9 % (41-71); PLATELET COUNT,PLT 132 10^3/uL (150-400); RED BLOOD CELL COUNT 4.07 x10^6/uL (4.50-6.00); WHITE BLOOD CELL COUNT,WBC 7.1 10^3/uL (4.0-11.0)
[2025-03-16 13:10] LABS: INR 1.42 (0.92-1.18); PROTHROMBIN TIME 14.4 SEC (9.3-11.3)
[2025-03-16 13:27] LABS: ALBUMIN 2.4 g/dL (3.4-5.0); BILIRUBIN TOTAL 0.5 mg/dL (0.0-1.0); C-REACTIVE PROTEIN 3.67 mg/dL (<=0.50); CALCIUM 8.8 mg/dL (8.4-10.1); EST CRCL DRUG DOSING (CG) 12.32 mL/min; MAGNESIUM 1.5 mg/dL (1.8-2.4); PROTEIN TOTAL,TP 7.3 g/dL (6.4-8.2)
[2025-03-16 13:29] LABS: CREATININE 5.5 mg/dL (0.7-1.3); POTASSIUM,K 2.7 mEq/L (3.5-5.0)
[2025-03-16] MEDS: Potassium Chloride 20 MEQ Tab.ER PO ONE (14:00)
[2025-03-16] MEDS: Magnesium Sulfate 2 GM/50 mL 2 GM in Premix Bag 1 BAG IV ONE (14:01)
[2025-03-16] MEDS: Sodium Chloride 0.9% 1,000 ML IV SCH (14:56)
[2025-03-16] MEDS: Potassium Chloride Riders 20 MEQ in Premix Bag 1 BAG IV SCH (14:57)
[2025-03-16 19:09] VITALS: BP 112/70; PULSE 88
[2025-03-16 21:23] LABS: CALCIUM 8.4 mg/dL (8.4-10.1); EST CRCL DRUG DOSING (CG) 12.32 mL/min; POTASSIUM,K 4.3 mEq/L (3.5-5.0)
[2025-03-16 21:24] LABS: CREATININE 5.5 mg/dL (0.7-1.3)
== END 2025-03-16 21:24 | disposition home or self-care (01) ==
LOC: CC.ED 12:26
DX: R55 Syncope and collapse (principal); E87.6 Hypokalemia; E83.42 Hypomagnesemia; I12.0 Hypertensive chronic kidney disease with stage 5 chronic kidney disease or end stage renal disease; N18.6 End stage renal disease; E78.00 Pure hypercholesterolemia, unspecified; E10.22 Type 1 diabetes mellitus with diabetic chronic kidney disease; E10.42 Type 1 diabetes mellitus with diabetic polyneuropathy; E03.9 Hypothyroidism, unspecified; Z86.73 Personal history of transient ischemic attack (TIA), and cerebral infarction without residual deficits; Z79.899 Other long term (current) drug therapy; Z79.4 Long term (current) use of insulin; Z79.01 Long term (current) use of anticoagulants; Z88.0 Allergy status to penicillin; Z88.1 Allergy status to other antibiotic agents
CPT/HCPCS: 36415; 70450; 71045; 80048; 80053; 83735; 84484; 85025; 85610; 85730; 86140; 93005; 96361; 96365; 96366; 96367; 99285; A9270; J3475; J3480; J7030

== ENCOUNTER 2025-03-30 22:57 | Observation (INO) | payer MEDICARE, BC ==
[2025-03-30 23:14] LABS: BASOPHILS ABSOLUTE AUTO 0.05 10^3/uL (0.00-0.50); BASOPHILS PERCENT AUTO 0.4 % (0-1); HEMATOCRIT 40.3 % (42.0-52.0); HEMOGLOBIN 13.7 g/dL (14.0-18.0); IMMATURE GRAN ABSOLUTE AUTO 0.09 10^3/uL (0.00-0.49); IMMATURE GRAN PERCENT AUTO 0.8 % (0.0-4.9); LYMPHOCYTES ABSOLUTE AUTO 0.32 10^3/uL (0.60-5.00); LYMPHOCYTES PERCENT AUTO 2.8 % (24-44); MEAN CORPUSCULAR HEMOGLOBIN 31.3 pg (27.0-32.0); MONOCYTES ABSOLUTE AUTO 0.78 10^3/uL (0.00-1.50); MONOCYTES PERCENT AUTO 6.8 % (0-10); NEUTROPHILS ABSOLUTE AUTO 10.16 x10^3/uL (1.80-8.00); NEUTROPHILS PERCENT AUTO 89.2 % (41-71); PLATELET COUNT,PLT 193 10^3/uL (150-400); RED BLOOD CELL COUNT 4.38 x10^6/uL (4.50-6.00); WHITE BLOOD CELL COUNT,WBC 11.4 10^3/uL (4.0-11.0)
[2025-03-30] MEDS: Sodium Chloride 0.9% 1,000 ML IV ONE (23:15)
[2025-03-30] MEDS: Ondansetron 4 MG/2 ML SDV IVPUSH STA (23:16)
[2025-03-30 23:23] LABS: INR 2.71 (0.92-1.18); PROTHROMBIN TIME 26.2 SEC (9.3-11.3)
[2025-03-30 23:34] LABS: ALBUMIN 2.4 g/dL (3.4-5.0); BILIRUBIN TOTAL 0.4 mg/dL (0.0-1.0); C-REACTIVE PROTEIN 6.07 mg/dL (<=0.50); CALCIUM 8.7 mg/dL (8.4-10.1); EST CRCL DRUG DOSING (CG) 12.55 mL/min; MAGNESIUM 1.3 mg/dL (1.8-2.4); POTASSIUM,K 3.2 mEq/L (3.5-5.0); PROTEIN TOTAL,TP 7.9 g/dL (6.4-8.2)
[2025-03-30 23:35] LABS: CREATININE 5.4 mg/dL (0.7-1.3)
[2025-03-31] MEDS: NS + KCl 20mEq/L 1,000 ML IV SCH (00:49)
[2025-03-31] MEDS: cefTRIAXone 1 GM Vial IVPUSH ONE (00:49)
[2025-03-31] MEDS: Magnesium Sulfate 2 GM/50 mL 2 GM in Premix Bag 1 BAG IV ONE ×2 (00:49→11:01)
[2025-03-31] MEDS ORDERED: Ondansetron 4 MG/2 ML SDV IV PRN (01:13)
[2025-03-31] MEDS ORDERED: Acetaminophen 325 MG Tab PO PRN (01:13)
[2025-03-31] MEDS ORDERED: Ondansetron 4 MG Tab.DIS PO PRN (01:13)
[2025-03-31 07:33] LABS: APPEARANCE,URINE CLEAR (CLEAR); BILIRUBIN,URINE NEGATIVE (NEGATIVE); COLOR,URINE DARK YELLOW (YELLOW); GLUCOSE,URINE 100 mg/dL (NEGATIVE); KETONES,URINE TRACE mg/dL (NEGATIVE); LEUKOCYTE ESTERASE,URINE NEGATIVE (NEGATIVE); NITRITE,URINE NEGATIVE (NEGATIVE); OCCULT BLOOD,URINE LARGE (NEGATIVE); PH,URINE 5.5 (4.5-8.0); PROTEIN,URINE 100 mg/dL (NEGATIVE); UROBILINOGEN,URINE 0.2 EU/dL (0.2-1.0)
[2025-03-31 07:43] LABS: BACTERIA,URINE OCCASIONAL /HPF (NOT SEEN); EPITHELIAL CELLS,URINE NOT SEEN /HPF (NOT SEEN); RBC,URINE >100 /HPF (0-5); WBC,URINE 0-5 /HPF (0-5)
[2025-03-31 07:44] LABS: MUCUS,URINE FEW /HPF (NOT SEEN)
[2025-03-31 07:52] LABS: BASOPHILS ABSOLUTE AUTO 0.05 10^3/uL (0.00-0.50); BASOPHILS PERCENT AUTO 0.4 % (0-1); EOSINOPHILS ABSOLUTE AUTO 0.01 10^3/uL (0.00-1.50); EOSINOPHILS PERCENT AUTO 0.1 % (0-6); HEMOGLOBIN 13.7 g/dL (14.0-18.0); IMMATURE GRAN PERCENT AUTO 0.9 % (0.0-4.9); LYMPHOCYTES ABSOLUTE AUTO 0.27 10^3/uL (0.60-5.00); LYMPHOCYTES PERCENT AUTO 2.3 % (24-44); MEAN CORPUSCULAR HEMOGLOBIN 30.6 pg (27.0-32.0); MEAN CORPUSCULAR HGB CONC 33.4 g/dL (32.0-36.0); MEAN CORPUSCULAR VOLUME 91.7 fL (83.0-97.0); MONOCYTES ABSOLUTE AUTO 0.86 10^3/uL (0.00-1.50); MONOCYTES PERCENT AUTO 7.4 % (0-10); NEUTROPHILS ABSOLUTE AUTO 10.32 x10^3/uL (1.80-8.00); NEUTROPHILS PERCENT AUTO 88.9 % (41-71); PLATELET COUNT,PLT 149 10^3/uL (150-400); RED BLOOD CELL COUNT 4.47 x10^6/uL (4.50-6.00); WHITE BLOOD CELL COUNT,WBC 11.6 10^3/uL (4.0-11.0)
[2025-03-31 07:57] LABS: BILIRUBIN TOTAL 0.2 mg/dL (0.0-1.0); C-REACTIVE PROTEIN 6.19 mg/dL (<=0.50)
[2025-03-31 08:15] LABS: ALBUMIN 2.5 g/dL (3.4-5.0); CALCIUM 8.8 mg/dL (8.4-10.1)
[2025-03-31 08:39] LABS: POTASSIUM,K 3.6 mEq/L (3.5-5.0)
[2025-03-31 08:40] LABS: CREATININE 3.4 mg/dL (0.7-1.3); EST CRCL DRUG DOSING (CG) 19.28 mL/min
[2025-03-31] MEDS ORDERED: DARBEPOETIN ALFA 25 MCG/0.42 ML IJ SCH (10:45)
[2025-03-31] MEDS ORDERED: Levothyroxine 150 MCG Tab PO SCH (11:30)
[2025-03-31] MEDS: Levothyroxine 50 MCG Tab PO SCH (12:07)
[2025-03-31] MEDS: Nystatin Ointment 15 GM Tube TOP SCH (12:07)
[2025-03-31] MEDS: Sertraline 100 MG Tab PO SCH (12:08)
[2025-03-31] MEDS: Folic Acid/Vit B Complix And C 1 Tablet PO SCH (12:08)
[2025-03-31] MEDS: Warfarin 5 MG Tab PO SCH (12:08)
[2025-03-31] MEDS: Gabapentin 100 MG Cap PO SCH (12:08)
[2025-03-31] MEDS: Clopidogrel 75 MG Tab PO SCH (12:08)
[2025-03-31] MEDS: Levothyroxine 125 MCG Tab PO SCH (12:08)
[2025-03-31] MEDS: Calcitriol 0.25 MCG Cap PO SCH (12:08)
[2025-03-31] MEDS: PHYTONADIONE 100 MCG PO SCH (12:12)
[2025-03-31] MEDS: Insulin Lispro 100 Units/ML 3 ML Vial SUBCUT SCH (14:36)
[2025-03-31] MEDS: Insulin Glarg,Human.Rec.Analog 100 Unit/ML 10 ML Vial SUBCUT SCH (14:36)
[2025-03-31 14:40] VITALS: BP 131/65; PULSE 76
[2025-03-31] MEDS ORDERED: Insulin Lispro 100 Units/ML 3 ML Vial SUBCUT SCH (20:00)
[2025-04-01] MEDS ORDERED: Rosuvastatin 10 MG Tab PO SCH (08:00)
[2025-04-01] MEDS ORDERED: Warfarin 2.5 MG Tab PO SCH (12:00)
== END 2025-03-31 14:00 | disposition home or self-care (01) ==
LOC: CC.ED 22:57 → CC.MS 23:55
PROVIDERS: ADMIT Physician Assistant Medical; ATTEND Physician Assistant Medical
DX: E87.1 Hypo-osmolality and hyponatremia (principal); E83.42 Hypomagnesemia; E10.22 Type 1 diabetes mellitus with diabetic chronic kidney disease; I12.0 Hypertensive chronic kidney disease with stage 5 chronic kidney disease or end stage renal disease; N18.6 End stage renal disease; Z99.2 Dependence on renal dialysis; E10.40 Type 1 diabetes mellitus with diabetic neuropathy, unspecified; E03.9 Hypothyroidism, unspecified; E78.00 Pure hypercholesterolemia, unspecified; Z79.890 Hormone replacement therapy; Z79.899 Other long term (current) drug therapy; Z88.0 Allergy status to penicillin; Z88.2 Allergy status to sulfonamides; S72.141A Displaced intertrochanteric fracture of right femur, initial encounter for closed fracture; I10 Essential (primary) hypertension; E10.9 Type 1 diabetes mellitus without complications; Z79.4 Long term (current) use of insulin; Z87.891 Personal history of nicotine dependence; W19.XXXA Unspecified fall, initial encounter
CPT/HCPCS: 36415; 71045; 80053; 81001; 83605; 83735; 85025; 85610; 86140; 87040; 96361; 96365; 96366; 96368; 96374; 96375; 99223; 99239; 99284; 99285-25; A6212; A9270-GY; G0378; J0696; J2405; J3010; J3475; J3480; J7030

== ENCOUNTER 2025-03-31 15:32 | Emergency (ER) | payer MEDICARE, BC ==
[2025-03-31] MEDS: fentaNYL 50 MCG/ML SDV IVPUSH ONE (15:56)
[2025-03-31 18:02] VITALS: BP 120/69; PULSE 81
[2025-03-31] MEDS ORDERED: fentaNYL 50 MCG/ML SDV ONE (22:56)
== END 2025-03-31 17:30 ==
LOC: CC.ED 15:32 → SUPCPDRO 15:32 → CC.ED 17:30
DX: S72.141A Displaced intertrochanteric fracture of right femur, initial encounter for closed fracture (principal); E78.00 Pure hypercholesterolemia, unspecified; I10 Essential (primary) hypertension; E10.9 Type 1 diabetes mellitus without complications; E03.9 Hypothyroidism, unspecified; Z88.0 Allergy status to penicillin; Z88.2 Allergy status to sulfonamides; Z79.890 Hormone replacement therapy; Z79.899 Other long term (current) drug therapy; Z79.4 Long term (current) use of insulin; Z87.891 Personal history of nicotine dependence; W19.XXXA Unspecified fall, initial encounter
CPT/HCPCS: 96374; 99285-25; J3010

== ENCOUNTER 2025-05-12 12:59 | Inpatient (IN) | payer MEDICARE, BC ==
[2025-05-12] MEDS ORDERED: Sennosides/Docusate Sodium 50-8.6 MG Tab PO PRN (13:40)
[2025-05-12] MEDS ORDERED: 50% Dextrose in Water 50 ML Syringe IVPUSH PRN (13:40)
[2025-05-12] MEDS ORDERED: Ondansetron 4 MG Tab.DIS PO PRN (14:23)
[2025-05-12] MEDS: [UNRECOGNIZED DRUG - OTHER] SUBCUT SCH (19:00)
[2025-05-12] MEDS: Gentamicin 0.1% Crm 15 GM Tube TOP SCH (19:51)
[2025-05-12] MEDS: Nystatin Topical Powder 15 GM Bottle TOP SCH (19:55)
[2025-05-12] MEDS: INSULIN NPH HUMAN ISOPHANE SQ SCH (20:05)
[2025-05-12] MEDS: AQUAPHOR TOP SCH (20:12)
[2025-05-13] MEDS: Folic Acid/Vit B Complix And C 1 Tablet PO SCH (06:20)
[2025-05-13] MEDS: Insulin Glarg,Human.Rec.Analog 100 Unit/ML 10 ML Vial SUBCUT SCH (07:29)
[2025-05-13] MEDS: PHYTONADIONE 100 MCG PO SCH (07:31)
[2025-05-13] MEDS ORDERED: WARFARIN SCH (08:00)
[2025-05-13] MEDS ORDERED: WARFARIN SODIUM 7.5 MG PO SCH (13:50)
[2025-05-15 07:43] LABS: INR 2.84 (0.92-1.18)
[2025-05-15 08:07] LABS: BASOPHILS ABSOLUTE AUTO 0.04 10^3/uL (0.00-0.50); BASOPHILS PERCENT AUTO 0.8 % (0-1); EOSINOPHILS ABSOLUTE AUTO 0.07 10^3/uL (0.00-1.50); EOSINOPHILS PERCENT AUTO 1.3 % (0-6); IMMATURE GRAN ABSOLUTE AUTO 0.10 10^3/uL (0.00-0.49); IMMATURE GRAN PERCENT AUTO 1.9 % (0.0-4.9); LYMPHOCYTES ABSOLUTE AUTO 0.24 10^3/uL (0.60-5.00); LYMPHOCYTES PERCENT AUTO 4.6 % (24-44); MONOCYTES ABSOLUTE AUTO 0.69 10^3/uL (0.00-1.50); MONOCYTES PERCENT AUTO 13.3 % (0-10); NEUTROPHILS ABSOLUTE AUTO 4.06 x10^3/uL (1.80-8.00); NEUTROPHILS PERCENT AUTO 78.1 % (41-71); PLATELET COUNT,PLT 226 10^3/uL (150-400); RED BLOOD CELL COUNT 2.83 x10^6/uL (4.50-6.00); WHITE BLOOD CELL COUNT,WBC 5.2 10^3/uL (4.0-11.0)
[2025-05-15 08:16] LABS: ALANINE AMINOTRANSFERASE,ALT 33.0 U/L (12-78); ASPARTATE AMNIOTRANSFERASE,AST 21.0 U/L (15-37); BILIRUBIN TOTAL 0.3 mg/dL (0.0-1.0); BLOOD UREA NITROGEN,BUN 47.0 mg/dL (7-18); CARBON DIOXIDE,CO2 30.0 mmol/L (21-32); CHLORIDE,CL 93.0 mEq/L (98-106); EST CRCL DRUG DOSING (CG) 16.39 mL/min; GLUCOSE RANDOM 268.0 mg/dL (75-99); POTASSIUM,K 3.1 mEq/L (3.5-5.0); PROTEIN TOTAL,TP 6.4 g/dL (6.4-8.2); SODIUM,NA 131.0 mEq/L (136-145)
[2025-05-15 08:18] LABS: CREATININE 4.0 mg/dL (0.7-1.3); ESTIMATED GFR 15.0 mL/min (>=60)
[2025-05-15] MEDS: Potassium Chloride 20 MEQ Tab.ER PO ONE (10:40)
[2025-05-16 07:33] LABS: BASOPHILS ABSOLUTE AUTO 0.06 10^3/uL (0.00-0.50); BASOPHILS PERCENT AUTO 1.5 % (0-1); EOSINOPHILS ABSOLUTE AUTO 0.11 10^3/uL (0.00-1.50); EOSINOPHILS PERCENT AUTO 2.7 % (0-6); IMMATURE GRAN ABSOLUTE AUTO 0.07 10^3/uL (0.00-0.49); IMMATURE GRAN PERCENT AUTO 1.7 % (0.0-4.9); LYMPHOCYTES ABSOLUTE AUTO 0.26 10^3/uL (0.60-5.00); LYMPHOCYTES PERCENT AUTO 6.4 % (24-44); MONOCYTES ABSOLUTE AUTO 0.57 10^3/uL (0.00-1.50); MONOCYTES PERCENT AUTO 14.0 % (0-10); NEUTROPHILS ABSOLUTE AUTO 3.00 x10^3/uL (1.80-8.00); NEUTROPHILS PERCENT AUTO 73.7 % (41-71); PLATELET COUNT,PLT 227 10^3/uL (150-400); RED BLOOD CELL COUNT 2.86 x10^6/uL (4.50-6.00); WHITE BLOOD CELL COUNT,WBC 4.1 10^3/uL (4.0-11.0)
[2025-05-16 08:17] LABS: BLOOD UREA NITROGEN,BUN 45.0 mg/dL (7-18); CARBON DIOXIDE,CO2 30.0 mmol/L (21-32); CHLORIDE,CL 96.0 mEq/L (98-106); EST CRCL DRUG DOSING (CG) 16.39 mL/min; GLUCOSE RANDOM 168.0 mg/dL (75-99); POTASSIUM,K 3.5 mEq/L (3.5-5.0); SODIUM,NA 133.0 mEq/L (136-145)
[2025-05-16 08:21] LABS: CREATININE 4.0 mg/dL (0.7-1.3); ESTIMATED GFR 15.0 mL/min (>=60)
[2025-05-19 07:20] LABS: BLOOD UREA NITROGEN,BUN 34.0 mg/dL (7-18); CARBON DIOXIDE,CO2 30.0 mmol/L (21-32); CHLORIDE,CL 93.0 mEq/L (98-106); EST CRCL DRUG DOSING (CG) 17.72 mL/min; GLUCOSE RANDOM 279.0 mg/dL (75-99); POTASSIUM,K 3.2 mEq/L (3.5-5.0); SODIUM,NA 132.0 mEq/L (136-145)
[2025-05-19 07:31] LABS: BASOPHILS ABSOLUTE AUTO 0.04 10^3/uL (0.00-0.50); BASOPHILS PERCENT AUTO 0.8 % (0-1); EOSINOPHILS ABSOLUTE AUTO 0.12 10^3/uL (0.00-1.50); EOSINOPHILS PERCENT AUTO 2.5 % (0-6); IMMATURE GRAN ABSOLUTE AUTO 0.12 10^3/uL (0.00-0.49); IMMATURE GRAN PERCENT AUTO 2.5 % (0.0-4.9); LYMPHOCYTES ABSOLUTE AUTO 0.23 10^3/uL (0.60-5.00); LYMPHOCYTES PERCENT AUTO 4.8 % (24-44); MONOCYTES ABSOLUTE AUTO 0.79 10^3/uL (0.00-1.50); MONOCYTES PERCENT AUTO 16.5 % (0-10); NEUTROPHILS ABSOLUTE AUTO 3.50 x10^3/uL (1.80-8.00); NEUTROPHILS PERCENT AUTO 72.9 % (41-71); PLATELET COUNT,PLT 229 10^3/uL (150-400); RED BLOOD CELL COUNT 2.86 x10^6/uL (4.50-6.00); WHITE BLOOD CELL COUNT,WBC 4.8 10^3/uL (4.0-11.0)
[2025-05-19 07:35] LABS: INR 2.76 (0.92-1.18)
[2025-05-19 07:36] LABS: CREATININE 3.7 mg/dL (0.7-1.3); ESTIMATED GFR 17.0 mL/min (>=60)
[2025-05-19] MEDS: Potassium Chloride 20 MEQ Tab.ER PO ONE (10:18)
[2025-05-19] MEDS: INSULIN NPH HUMAN ISOPHANE SUBCUT SCH (19:19)
[2025-05-20] MEDS: Potassium Chloride 10 MEQ Tab.ER PO SCH (07:38)
[2025-05-22 07:32] LABS: BASOPHILS ABSOLUTE AUTO 0.06 10^3/uL (0.00-0.50); BASOPHILS PERCENT AUTO 1.2 % (0-1); EOSINOPHILS ABSOLUTE AUTO 0.14 10^3/uL (0.00-1.50); EOSINOPHILS PERCENT AUTO 2.7 % (0-6); IMMATURE GRAN ABSOLUTE AUTO 0.15 10^3/uL (0.00-0.49); IMMATURE GRAN PERCENT AUTO 2.9 % (0.0-4.9); LYMPHOCYTES ABSOLUTE AUTO 0.34 10^3/uL (0.60-5.00); LYMPHOCYTES PERCENT AUTO 6.7 % (24-44); MONOCYTES ABSOLUTE AUTO 0.73 10^3/uL (0.00-1.50); MONOCYTES PERCENT AUTO 14.3 % (0-10); NEUTROPHILS ABSOLUTE AUTO 3.69 x10^3/uL (1.80-8.00); NEUTROPHILS PERCENT AUTO 72.2 % (41-71); PLATELET COUNT,PLT 245 10^3/uL (150-400); RED BLOOD CELL COUNT 3.05 x10^6/uL (4.50-6.00); WHITE BLOOD CELL COUNT,WBC 5.1 10^3/uL (4.0-11.0)
[2025-05-22 08:11] LABS: BLOOD UREA NITROGEN,BUN 33.0 mg/dL (7-18); CARBON DIOXIDE,CO2 29.0 mmol/L (21-32); CHLORIDE,CL 96.0 mEq/L (98-106); EST CRCL DRUG DOSING (CG) 18.73 mL/min; GLUCOSE RANDOM 126.0 mg/dL (75-99); POTASSIUM,K 3.5 mEq/L (3.5-5.0); SODIUM,NA 133.0 mEq/L (136-145)
[2025-05-22 08:12] LABS: CREATININE 3.5 mg/dL (0.7-1.3); ESTIMATED GFR 18.0 mL/min (>=60)
[2025-05-25] MEDS: GENTAMICIN 0.1% TOP SCH (07:10)
[2025-05-26 07:55] LABS: INR 1.76 (0.92-1.18)
[2025-05-29 07:19] LABS: INR 1.83 (0.92-1.18)
[2025-05-29] MEDS: Nystatin Topical Powder 15 GM Bottle TOP PRN (07:20)
[2025-06-05 07:37] LABS: INR 2.4 (0.92-1.18)
[2025-06-08 20:38] VITALS: BP 134/67; PULSE 88
== END 2025-06-08 14:20 | disposition home health service (06) | DRG 947 ==
LOC: CC.MS 12:59 → UNDOADMIN 12:59 → CC.MS 13:05
PROVIDERS: ADMIT Physician Assistant Medical; ATTEND Physician Assistant Medical
DX: R53.1 Weakness (principal); N18.6 End stage renal disease; L97.418 Non-pressure chronic ulcer of right heel and midfoot with other specified severity; H54.7 Unspecified visual loss; E78.00 Pure hypercholesterolemia, unspecified; I10 Essential (primary) hypertension; M19.90 Unspecified osteoarthritis, unspecified site; E11.40 Type 2 diabetes mellitus with diabetic neuropathy, unspecified; F32.A Depression, unspecified; E03.9 Hypothyroidism, unspecified; E11.621 Type 2 diabetes mellitus with foot ulcer; E55.9 Vitamin D deficiency, unspecified; Z85.46 Personal history of malignant neoplasm of prostate; Z98.890 Other specified postprocedural states; Z88.8 Allergy status to other drugs, medicaments and biological substances; Z79.01 Long term (current) use of anticoagulants; Z79.4 Long term (current) use of insulin; Z98.49 Cataract extraction status, unspecified eye; Z79.899 Other long term (current) drug therapy; Z88.0 Allergy status to penicillin; Z86.73 Personal history of transient ischemic attack (TIA), and cerebral infarction without residual deficits; Z90.79 Acquired absence of other genital organ(s); Z99.2 Dependence on renal dialysis
CPT/HCPCS: 36415; 80048; 80053; 82947; 83735; 85025; 85610; 97110-GP; 97162-GP; 97163-GP; 97530-GP; 97597-GP; A9270-GY; J1815-GY

== ENCOUNTER 2025-08-03 19:14 | Emergency (ER) | payer MEDICARE, BC ==
[2025-08-03 19:53] LABS: BASOPHILS ABSOLUTE AUTO 0.04 10^3/uL (0.00-0.50); BASOPHILS PERCENT AUTO 1.2 % (0-1); EOSINOPHILS ABSOLUTE AUTO 0.05 10^3/uL (0.00-1.50); EOSINOPHILS PERCENT AUTO 1.4 % (0-6); IMMATURE GRAN ABSOLUTE AUTO 0.10 10^3/uL (0.00-0.49); IMMATURE GRAN PERCENT AUTO 2.9 % (0.0-4.9); LYMPHOCYTES ABSOLUTE AUTO 0.45 10^3/uL (0.60-5.00); LYMPHOCYTES PERCENT AUTO 13.0 % (24-44); MONOCYTES ABSOLUTE AUTO 0.45 10^3/uL (0.00-1.50); MONOCYTES PERCENT AUTO 13.0 % (0-10); NEUTROPHILS ABSOLUTE AUTO 2.37 x10^3/uL (1.80-8.00); NEUTROPHILS PERCENT AUTO 68.5 % (41-71); PLATELET COUNT,PLT 227 10^3/uL (150-400); RED BLOOD CELL COUNT 3.84 x10^6/uL (4.50-6.00); WHITE BLOOD CELL COUNT,WBC 3.5 10^3/uL (4.0-11.0)
[2025-08-03 20:08] LABS: ALANINE AMINOTRANSFERASE,ALT 35 U/L (12-78); ASPARTATE AMNIOTRANSFERASE,AST 17 U/L (15-37); BILIRUBIN TOTAL 0.3 mg/dL (0.0-1.0); BLOOD UREA NITROGEN,BUN 40 mg/dL (7-18); CARBON DIOXIDE,CO2 25 mmol/L (21-32); CHLORIDE,CL 96 mEq/L (98-106); CREATINE KINASE,CK 44 U/L (35-232); GLUCOSE RANDOM 134 mg/dL (75-99); POTASSIUM,K 3.4 mEq/L (3.5-5.0); PROTEIN TOTAL,TP 7.0 g/dL (6.4-8.2); SODIUM,NA 135 mEq/L (136-145)
[2025-08-03 20:09] LABS: CREATININE 4.6 mg/dL (0.7-1.3); ESTIMATED GFR 13 mL/min (>=60)
[2025-08-03 20:32] LABS: INR 2.33 (0.92-1.18)
[2025-08-03 21:45] VITALS: BP 128/61; PULSE 72
== END 2025-08-03 21:47 | disposition home or self-care (01) ==
LOC: CC.ED 19:14
DX: R55 Syncope and collapse (principal); E78.00 Pure hypercholesterolemia, unspecified; I10 Essential (primary) hypertension; E10.40 Type 1 diabetes mellitus with diabetic neuropathy, unspecified; E03.9 Hypothyroidism, unspecified; Z86.73 Personal history of transient ischemic attack (TIA), and cerebral infarction without residual deficits; Z88.1 Allergy status to other antibiotic agents; Z88.0 Allergy status to penicillin; Z88.2 Allergy status to sulfonamides; Z79.890 Hormone replacement therapy; Z79.899 Other long term (current) drug therapy; Z79.4 Long term (current) use of insulin; Z79.01 Long term (current) use of anticoagulants
CPT/HCPCS: 36415; 70450; 80053; 82550; 83735; 84484; 85025; 85610; 86140; 96360; 99284-25; J7030